=== PATIENT | male | born 1990 | race Caucasian/White ===

== ENCOUNTER 2021-05-28 00:32 | Emergency (ER) | payer OTHER, SELFPAY ==
--- NOTE | 2021-05-28 | ECG_ITS ---
Test Reason : ABD PAIN Blood Pressure : / mmHG Vent. Rate : 094 BPM Atrial Rate : 094 BPM P-R Int : 146 ms QRS Dur : 088 ms QT Int : 334 ms P-R-T Axes : 039 036 046 degrees QTc Int : 417 ms Normal sinus rhythm Normal ECG When compared with ECG of 02-NOV-2018 01:34, No significant change was found Referred By: Generic ED Physician Electronically Signed By:Prem Flores
--- NOTE | ~2021-05-28 | CT_ITS ---
EXAMINATION: CT ABDOMEN AND PELVIS WITH CONTRAST CLINICAL INFORMATION: Epigastric pain. COMPARISON: 07/30/2019 TECHNIQUE: Multidetector volumetric images were obtained from the superior aspect of the liver through the pubic symphysis following administration 85 mL of Omnipaque 350 intravenous contrast. Sagittal and coronal reformatted images were obtained on the technologist's workstation. Oral contrast: No This CT examination was performed using dose optimization techniques as appropriate, variously including the following: *Automated exposure control *Adjustment of mA and/or kV according to patient size (this includes techniques or standardized protocols for targeted exams where dose is matched to indication/reason for exam; i.e. extremities or head) *Use of iterative reconstruction technique DLP: 960 mGy-cm FINDINGS: LUNG BASES: The visualized lung bases are unremarkable. LIVER, GALLBLADDER, AND BILIARY TREE: The liver is normal in size, shape, and attenuation. No focal hepatic lesion or biliary ductal dilatation is present. The gallbladder is unremarkable with no evidence of radiopaque gallstones, gallbladder wall thickening, or obvious pericholecystic inflammatory changes. PANCREAS: Unremarkable. SPLEEN: Unremarkable. ADRENAL GLANDS: Unremarkable. KIDNEYS AND URETERS: The kidneys are normal in size, shape, and attenuation. No hydronephrosis, hydroureter, or calculi seen. No perinephric stranding. BLADDER: Unremarkable. GASTROINTESTINAL TRACT: The small and large bowel are unremarkable. The appendix is unremarkable. ABDOMINAL WALL: No significant hernia is appreciated. LYMPH NODES: Normal. VASCULAR: Unremarkable. PELVIC VISCERA: The prostate and seminal vesicles are unremarkable. OSSEOUS STRUCTURES: Unremarkable. CT/CT abdomen pelvis w con IMPRESSION: No acute findings of the abdomen or pelvis. No inflammatory changes. Fleischner guidelines were followed.
[2021-05-28 00:58] VITALS: BP 147/87; PULSE 92; RESP 18; TEMP 36.6; O2SAT 97; BMI 38.0
[2021-05-28 02:08] LABS: MANUAL DIFF FLAG NO
[2021-05-28 02:10] LABS: Basophils Absolute Auto 0.1 X10*3/uL (0.0-0.2); Basophils Percent Auto 0.9 % (0-2); Eosinophils Absolute Auto 0.6 X10*3/uL (0.0-0.4); Eosinophils Percent Auto 5.7 % (0-4); Hematocrit 49.3 % (42.0-52.0); Hemoglobin 16.1 g/dl (14.0-18.0); Imm Gran Abs Auto 0.07 X10*3/uL (0.00-0.03); Imm Gran Pct Auto 0.7 % (0.0-0.4); Lymphocytes Absolute Auto 3.2 X10*3/uL (1.2-4.9); Mean Corpuscular HGB Conc 32.7 g/dl (31.0-36.0); Mean Corpuscular Volume 85.6 fL (80.0-98.0); Mean Platelet Volume 9.3 fL (9.4-12.4); Monocytes Absolute Auto 1.3 X10*3/uL (0.1-1.2); Monocytes Percent Auto 13.3 % (2-11); Neutrophils Absolute Auto 4.8 x10*3/uL (2.0-8.3); Neutrophils Percent Auto 47.4 % (45-73); Platelet Count 256 X10*3/uL (160-400); Red Blood Count 5.76 X10*6/uL (4.60-5.80); White Blood Count 10.1 X10*3/uL (4.8-10.8)
[2021-05-28 02:26] LABS: Anion Gap 15 (12-20); Blood Urea Nitrogen 20 mg/dL (9-16); Calcium 9.9 mg/dL (8.4-10.2); Carbon Dioxide 26 mmol/L (22-29); Chloride 104 mmol/L (96-108); Creatinine Clr Calc Pharmacy 153.6; Estimated Glomerular Filt Rate > 60; Glucose Random 109 mg/dL (60-115); Potassium 4.6 mmol/L (3.3-5.1); Sodium 140 mmol/L (135-145)
[2021-05-28 02:37] LABS: COVID-19 Test Negative (Negative); IDNOW Serial# 9DD0AD1C
[2021-05-28 04:31] VITALS: BP 141/81; PULSE 102; RESP 18; TEMP 36.9; O2SAT 95
--- NOTE | 2021-05-28 04:54 | ED_ITS ---
HPI - Abdominal Pain General Chief Complaint: Abdominal Pain Stated Complaint: Abd pain/Chest pain Time Seen by Provider: 05/28/21 04:45 History of Present Illness HPI narrative: Patient 30-year-old male presents today for having epigastric pain after drinking some probably drink. Patient has a history of similar pains with soda and spicy food. The pain is burning in nature. It is epigastric. No fever no chills. No alcohol use. No cough and no congestion or upper respiratory symptoms. No change in bowel movement. Patient from home. Related Data Previous Rx's Medication Instructions Recorded pantoprazole 40 mg tablet,delayed 40 mg PO DAILY #14 tab 05/28/21 release (Protonix) Allergies Allergy/AdvReac Type Severity Reaction Status Date / Time No Known Allergies Allergy Unverified 01/26/20 16:13 [No Known Allergies*] seasonal allergies Allergy Unknown Uncoded 12/05/19 00:00 Review of Systems Review of Systems No fever or chills no focal weakness All system reviewed otherwise negative Physical Exam Vital Signs: Vital Signs: Last Vital Signs Temp 98.4 F 05/28/21 04:31 Pulse 102 H 05/28/21 04:31 Resp 18 05/28/21 04:31 BP 141/81 H 05/28/21 04:31 Pulse Ox 95 05/28/21 04:31 BMI result Body Mass Index 38.0 Appearance: Alert. Oriented X3. No acute distress. Eyes: Pupils equal, round and reactive to light. ENT: Pharynx normal. Neck: Normal inspection. Neck supple. No lymph nodes noted. No crepitus CVS: Normal heart rate and rhythm. Pulses normal. Normal S1 and S2 Respiratory: No respiratory distress. Breath sounds normal. No Wheezing. No rales Abdomen: Soft and nontender. No rigidity. No distention. good BS x4 Skin: Skin warm and dry. Normal skin color. Normal skin turgor. Extremities: No lower extremity edema. Neurovascular intact to all extremities. No Lacerations. No Rash Neuro: Oriented X 3. No motor deficit. No sensory deficit. Moving all extermities. No slurred speech MDM - Abdominal Pain MDM Narrative Medical decision making narrative: CT scan of the abdomen grossly negative for any acute evidence of abscess perforation obstruction. Patient's electrolytes unremarkable lipase is normal no evidence of pancreatitis LFTs normal. Will start patient on PPI. Will discharge patient home Medical Records Attestation: I reviewed the patient's medical records. Lab Data Attestation: I reviewed the patient's lab results. Result diagrams: 05/28/21 01:59 05/28/21 01:59 Labs: Lab Results 05/28/21 05/28/21 05/28/21 Range/Units 01:58 01:59 01:59 WBC 10.1 (4.8-10.8) X10*3/uL RBC 5.76 (4.60-5.80) X10*6/uL Hgb 16.1 (14.0-18.0) g/dl Hct 49.3 (42.0-52.0) % MCV 85.6 (80.0-98.0) fL MCH 28.0 (27.0-33.0) pg MCHC 32.7 (31.0-36.0) g/dl RDW 13.0 (11.0-16.0) % Plt Count 256 (160-400) X10*3/uL MPV 9.3 L (9.4-12.4) fL Immature Gran % (Auto) 0.7 H (0.0-0.4) % Neut % (Auto) 47.4 (45-73) % Lymph % (Auto) 32.0 (20-40) % Pershing % (Auto) 13.3 H (2-11) % Eos % (Auto) 5.7 H (0-4) % Baso % (Auto) 0.9 (0-2) % Lymph # (Auto) 3.2 (1.2-4.9) X10*3/uL Pershing # (Auto) 1.3 H (0.1-1.2) X10*3/uL Eos # (Auto) 0.6 H (0.0-0.4) X10*3/uL Baso # (Auto) 0.1 (0.0-0.2) X10*3/uL Abs Immat Gran (auto) 0.07 H (0.00-0.03) X10*3/uL Absolute Neuts (auto) 4.8 (2.0-8.3) x10*3/uL Absolute Nucleated RBC 0.000 (0.0-0.012) X10*3/uL Nucleated RBC % (auto) 0.0 (0.0-0.2) /100WBC Sodium 140 (135-145) mmol/L Potassium 4.6 (3.3-5.1) mmol/L Chloride 104 (96-108) mmol/L Carbon Dioxide 26 (22-29) mmol/L Anion Gap 15 (12-20) BUN 20 H (9-16) mg/dL Creatinine 0.93 (0.5-1.4) mg/dL Estim Creat Clear Calc 153.6 Estimated GFR > 60 Random Glucose 109 (60-115) mg/dL Calcium 9.9 (8.4-10.2) mg/dL Total Bilirubin 0.6 (0.0-1.0) mg/dL Direct Bilirubin 0.3 (0.0-0.5) mg/dL AST 26 (5-37) U/L ALT 28 (0-40) U/L Alkaline Phosphatase 62 (39-117) U/L Troponin I High Sens (<3.5-35.0) ng/L Total Protein 7.8 (6.5-8.0) g/dL Albumin 4.5 (3.5-5.0) g/dL Lipase 42 (8-78) U/L COVID-19 ([facility]) Negative (Negative) COVID-19 Clin Com See Note 05/28/21 Range/Units 05:06 WBC (4.8-10.8) X10*3/uL RBC (4.60-5.80) X10*6/uL Hgb (14.0-18.0) g/dl Hct (42.0-52.0) % MCV (80.0-98.0) fL MCH (27.0-33.0) pg MCHC (31.0-36.0) g/dl RDW (11.0-16.0) % Plt Count (160-400) X10*3/uL MPV (9.4-12.4) fL Immature Gran % (Auto) (0.0-0.4) % Neut % (Auto) (45-73) % Lymph % (Auto) (20-40) % Pershing % (Auto) (2-11) % Eos % (Auto) (0-4) % Baso % (Auto) (0-2) % Lymph # (Auto) (1.2-4.9) X10*3/uL Pershing # (Auto) (0.1-1.2) X10*3/uL Eos # (Auto) (0.0-0.4) X10*3/uL Baso # (Auto) (0.0-0.2) X10*3/uL Abs Immat Gran (auto) (0.00-0.03) X10*3/uL Absolute Neuts (auto) (2.0-8.3) x10*3/uL Absolute Nucleated RBC (0.0-0.012) X10*3/uL Nucleated RBC % (auto) (0.0-0.2) /100WBC Sodium (135-145) mmol/L Potassium (3.3-5.1) mmol/L Chloride (96-108) mmol/L Carbon Dioxide (22-29) mmol/L Anion Gap (12-20) BUN (9-16) mg/dL Creatinine (0.5-1.4) mg/dL Estim Creat Clear Calc Estimated GFR Random Glucose (60-115) mg/dL Calcium (8.4-10.2) mg/dL Total Bilirubin (0.0-1.0) mg/dL Direct Bilirubin (0.0-0.5) mg/dL AST (5-37) U/L ALT (0-40) U/L Alkaline Phosphatase (39-117) U/L Troponin I High Sens < 3.5 (<3.5-35.0) ng/L Total Protein (6.5-8.0) g/dL Albumin (3.5-5.0) g/dL Lipase (8-78) U/L COVID-19 ([facility]) (Negative) COVID-19 Clin Com Discharge Plan Discharge Clinical Impression: Gastritis Patient Disposition: Home, Self-Care Instructions: Gastritis (ED) Additional Instructions: Small meals. No fatty food. Please take your Protonix on a daily basis. Prescriptions: New pantoprazole [Protonix] 40 mg tablet,delayed release (DR/EC) 40 mg PO DAILY Qty: 14 RF: 0 Referrals: Jatin Peck MD [Primary Care Provider] - 2 days [facility] Past Medical History Attestation statement: The following information was validated with the patient. Social History Social History Advance Directives: No
[2021-05-28 05:00] LABS: Alanine Aminotransferase 28 U/L (0-40); Albumin Level 4.5 g/dL (3.5-5.0); Alkaline Phosphatase 62 U/L (39-117); Aspartate Amino Transferase 26 U/L (5-37); Bilirubin Direct 0.3 mg/dL (0.0-0.5); Bilirubin Total 0.6 mg/dL (0.0-1.0); Lipase 42 U/L (8-78); Total Protein 7.8 g/dL (6.5-8.0)
[2021-05-28] MEDS: Magnesium Hydrox/Alum Hydrox 30 ML ORAL.SUSP PO (05:11)
[2021-05-28 05:30] LABS: Troponin-I High Sensitivity < 3.5 ng/L (<3.5-35.0)
[2021-05-28] MEDS: iohexoL 350 MG/ML 100 ML INFUS..BTL 85 ML IV (05:34)
[2021-05-28] MEDS: Acetaminophen 325 MG TABLET 650 MG PO (06:17)
== END 2021-05-28 06:26 | disposition home or self-care (01) ==
PROVIDERS: Emergency Provider Emergency Medicine Emergency Medical Services; PCP Internal Medicine
DX: K29.70 Gastritis, unspecified, without bleeding (principal); Z20.822 Contact with and (suspected) exposure to COVID-19; R10.13 Epigastric pain
CPT/HCPCS: 36415; 74177; 80048; 80076; 83690; 84484; 85025; 87635; 93005; 99284; Q9967

== ENCOUNTER 2021-07-04 17:16 | Emergency (ER) | payer OTHER, SELFPAY ==
--- NOTE | ~2021-07-04 | XR_ITS ---
EXAMINATION: XR CHEST CLINICAL INFORMATION: Chest pain COMPARISON: Chest x-ray 03/28/2011 TECHNIQUE: Frontal view of the chest was obtained. 5:56 PM FINDINGS: No significant abnormality is noted involving the heart, lungs, mediastinum, bony thorax or soft tissues. XR/XR chest 1V IMPRESSION: Unremarkable examination.
--- NOTE | 2021-07-04 17:20 | ECG_ITS ---
Test Reason : CHEST PAIN Blood Pressure : / mmHG Vent. Rate : 067 BPM Atrial Rate : 067 BPM P-R Int : 156 ms QRS Dur : 098 ms QT Int : 390 ms P-R-T Axes : 036 036 024 degrees QTc Int : 412 ms Normal sinus rhythm Normal ECG When compared with ECG of 28-MAY-2021 01:50, No significant change was found Referred By: Generic ED Physician Electronically Signed By:MONET MUÑOZ
[2021-07-04 17:24] VITALS: BP 154/82; PULSE 82; RESP 16; TEMP 36.7; O2SAT 98; BMI 32.8
[2021-07-04 17:41] LABS: MANUAL DIFF FLAG NO
[2021-07-04 17:49] LABS: Basophils Absolute Auto 0.1 X10*3/uL (0.0-0.2); Basophils Percent Auto 0.7 % (0-2); Eosinophils Absolute Auto 0.3 X10*3/uL (0.0-0.4); Hematocrit 45.8 % (42.0-52.0); Imm Gran Abs Auto 0.01 X10*3/uL (0.00-0.03); Imm Gran Pct Auto 0.1 % (0.0-0.4); Lymphocytes Absolute Auto 2.8 X10*3/uL (1.2-4.9); Lymphocytes Percent Auto 40.2 % (20-40); Mean Corpuscular HGB Conc 32.8 g/dl (31.0-36.0); Mean Corpuscular Hemoglobin 27.7 pg (27.0-33.0); Mean Corpuscular Volume 84.7 fL (80.0-98.0); Mean Platelet Volume 10.5 fL (9.4-12.4); Monocytes Absolute Auto 0.9 X10*3/uL (0.1-1.2); Monocytes Percent Auto 12.8 % (2-11); Neutrophils Absolute Auto 2.9 x10*3/uL (2.0-8.3); Neutrophils Percent Auto 42.2 % (45-73); Platelet Count 212 X10*3/uL (160-400); Red Blood Count 5.41 X10*6/uL (4.60-5.80); Red Cell Distribution Width 13.1 % (11.0-16.0); White Blood Count 6.9 X10*3/uL (4.8-10.8)
[2021-07-04 18:01] LABS: Anion Gap 15 (12-20); Blood Urea Nitrogen 18 mg/dL (9-16); Calcium 9.7 mg/dL (8.4-10.2); Carbon Dioxide 25 mmol/L (22-29); Chloride 104 mmol/L (96-108); Creatinine Clr Calc Pharmacy 149.4; Estimated Glomerular Filt Rate > 60; Glucose Random 82 mg/dL (60-115); Sodium 140 mmol/L (135-145)
[2021-07-04 18:07] LABS: Troponin-I High Sensitivity < 3.5 ng/L (<3.5-35.0)
[2021-07-04 22:50] LABS: Alanine Aminotransferase 30 U/L (0-40); Albumin Level 4.5 g/dL (3.5-5.0); Alkaline Phosphatase 53 U/L (39-117); Aspartate Amino Transferase 29 U/L (5-37); Bilirubin Direct 0.5 mg/dL (0.0-0.5); Bilirubin Total 2.8 mg/dL (0.0-1.0); Lipase 55 U/L (8-78); Total Protein 7.3 g/dL (6.5-8.0)
[2021-07-04 23:24] VITALS: BP 126/70; PULSE 71; RESP 16; TEMP 36.4; O2SAT 98
[2021-07-04] MEDS: Famotidine 20 MG TABLET PO (23:26)
[2021-07-04] MEDS: Lidocaine HCl Viscous 2 % 15 ML SOLUTION MUCOUS MEM (23:26)
[2021-07-04] MEDS: Magnesium Hydrox/Alum Hydrox 30 ML ORAL.SUSP PO (23:26)
[2021-07-04] MEDS: PHENobarb/Hyoscy/Atropine/Scop 10 ML ELIXIR PO (23:26)
--- NOTE | 2021-07-04 23:41 | ED_ITS ---
HPI - Abdominal Pain General Chief Complaint: Abdominal Pain Stated Complaint: Chest pain/abd pain Time Seen by Provider: 07/04/21 22:30 Source: patient Mode of arrival: ambulatory Limitations: no limitations History of Present Illness HPI narrative: 31-year-old male presents to ED for chronic abdominal pain since he was seen here last visit May 28 2021. Patient states having acid burning sensation. He states on omeprazole no improvement. Patient states acid belly pain going up to chest pain. Patient has follow-up with blue split trimmer ball away August 05. Patient wants early consultation or to be seen by Gastroenterology earlier. Patient denies any blood in stool or vomiting blood. Patient denies any nausea or vomiting MD elicited complaint: abdominal pain Related Data Previous Rx's Medication Instructions Recorded pantoprazole 40 mg tablet,delayed 40 mg PO DAILY #14 tab 05/28/21 release (Protonix) famotidine 20 mg tablet (Pepcid) 20 mg PO BID 10 Days #20 tab 07/04/21 Allergies Allergy/AdvReac Type Severity Reaction Status Date / Time No Known Allergies Allergy Unverified 07/04/21 17:24 [No Known Allergies*] seasonal allergies Allergy Unknown Itchy Eyes Uncoded 07/04/21 17:24 Review of Systems Review of Systems Abdominal pain as a burning sensation Yes all other systems are reviewed and are negative PMFSH Past Medical History Medical History (Updated 07/04/21 @ 23:49 by AYLEEN Hogue) Gastritis No known health problems Social History Social History Advance Directives: No Advance Directives Information Provided: No Physical Exam ED Vital Signs: Vital Signs - 24 hr 07/04/21 17:24 07/04/21 23:24 Temperature 98.1 F 97.5 F Pulse Rate 82 71 Respiratory Rate 16 16 Blood Pressure 154/82 H 126/70 Pulse Oximetry 98 98 BMI result Body Mass Index 32.8 Const General: cooperative, healthy appearing, comfortable, no acute distress, well developed, awake and Physically active Orientation/consciousness: patient oriented x3 HENMT Head: Yes normal to inspection, Yes No palpable skull fracture present, Yes normocephalic, Yes atraumatic and No abrasion Eyes General: appearance normal, both eyes and all related structures Neck Neck: Yes normal visual inspection, Yes full ROM, Yes no lymphadenopathy, Yes no meningeal signs, Yes trachea midline, Yes supple, No anterior neck swelling and No tender Chest Chest palpation & inspection: normal inspection of the chest and normal palpation of entire chest wall Resp Effort & Inspection: normal respiratory effort and able to speak in complete sentences Auscultation: clear to auscultation bilaterally Cardio Jugular venous distension: no JVD Heart sounds: S1 normal heart sound present and S2 normal heart sound present GI Inspection: Yes normal to inspection and No abdominal wall ecchymosis Palpation (GI): Soft to palpation, not firm, nontender, no guarding and not rigid General: No CVA tenderness and Yes no CVA tenderness Back/Spine/Pelvis Back: no CVA tenderness, No CVA tenderness and No back tenderness Skin General skin exam: no rashes or lesions noted and elasticity normal Neuro General: patient oriented x3, gait normal, no meningeal signs and CN's II-XI intact bilaterally Cranial nerves: Yes CN's II-XII intact bilaterally Extrem General: Yes normal to inspection and Yes full ROM Psych Appearance: grossly normal, well kempt and not disheveled Course Course Course Narrative: Labs and EKG ordered. Reevaluation(s) Reevaluation #1: EKG normal negative STEMI. Labs include troponin and chest x-ray normal. LFTs and lipase normal. Patient given GI cocktail. Patient informed to call Gastroenterology to have earlier appointment. Patient educated he may need an endoscope P and colonoscopy. Patient Education gastritis. Patient educated on H pylori. Patient had normal CT scan in May and states he had a recent normal abdominal ultrasound 2 weeks ago. States having same symptoms since May. Time: 23:45 MDM - Abdominal Pain MDM Narrative Medical decision making narrative: GERD abdominal pain Lab Data Result diagrams: 07/04/21 17:37 07/04/21 17:37 Labs: Lab Results 07/04/21 07/04/21 07/04/21 Range/Units 17:37 17:37 17:37 WBC 6.9 (4.8-10.8) X10*3/uL RBC 5.41 (4.60-5.80) X10*6/uL Hgb 15.0 (14.0-18.0) g/dl Hct 45.8 (42.0-52.0) % MCV 84.7 (80.0-98.0) fL MCH 27.7 (27.0-33.0) pg MCHC 32.8 (31.0-36.0) g/dl RDW 13.1 (11.0-16.0) % Plt Count 212 (160-400) X10*3/uL MPV 10.5 (9.4-12.4) fL Immature Gran % (Auto) 0.1 (0.0-0.4) % Neut % (Auto) 42.2 L (45-73) % Lymph % (Auto) 40.2 H (20-40) % Dodge % (Auto) 12.8 H (2-11) % Eos % (Auto) 4.0 (0-4) % Baso % (Auto) 0.7 (0-2) % Lymph # (Auto) 2.8 (1.2-4.9) X10*3/uL Dodge # (Auto) 0.9 (0.1-1.2) X10*3/uL Eos # (Auto) 0.3 (0.0-0.4) X10*3/uL Baso # (Auto) 0.1 (0.0-0.2) X10*3/uL Abs Immat Gran (auto) 0.01 (0.00-0.03) X10*3/uL Absolute Neuts (auto) 2.9 (2.0-8.3) x10*3/uL Absolute Nucleated RBC 0.000 (0.0-0.012) X10*3/uL Nucleated RBC % (auto) 0.0 (0.0-0.2) /100WBC Sodium 140 (135-145) mmol/L Potassium 4.0 (3.3-5.1) mmol/L Chloride 104 (96-108) mmol/L Carbon Dioxide 25 (22-29) mmol/L Anion Gap 15 (12-20) BUN 18 H (9-16) mg/dL Creatinine 0.88 (0.5-1.4) mg/dL Estim Creat Clear Calc 149.4 Estimated GFR > 60 Random Glucose 82 (60-115) mg/dL Calcium 9.7 (8.4-10.2) mg/dL Total Bilirubin 2.8 H (0.0-1.0) mg/dL Direct Bilirubin 0.5 (0.0-0.5) mg/dL AST 29 (5-37) U/L ALT 30 (0-40) U/L Alkaline Phosphatase 53 (39-117) U/L Troponin I High Sens < 3.5 (<3.5-35.0) ng/L Total Protein 7.3 (6.5-8.0) g/dL Albumin 4.5 (3.5-5.0) g/dL Lipase 55 (8-78) U/L ECG Data Interpretation: Normal sinus rhythm. Ventricular rate 67. Parents were 156. QRS 98. QTC 412. Negative STEMI Discharge Plan Discharge Clinical Impression: Gastroesophageal reflux disease, Abdominal pain Patient Disposition: Home, Self-Care Instructions: Gastroesophageal Reflux Disease (DC), Abdominal Pain (ED) Additional Instructions: Return to ED for blood in stool, severe abdominal pain, vomiting blood, in ability to tolerate solid food/liquid, weakness, dizziness, chest pain, shortness of breath, or any other concerning symptoms. Your labs came back normal including liver and lipase. EKG, chest x-ray and troponin came back normal. Prescriptions: New famotidine [Pepcid] 20 mg tablet 20 mg PO BID 10 Days Qty: 20 0RF No Action pantoprazole [Protonix] 40 mg tablet,delayed release (DR/EC) 40 mg PO DAILY Qty: 14 0RF Referrals: Lucho Rehman MD [Physician] - 2 days (Chronic GERD like symptoms. May need endoscopy/colonoscopy) Stand Alone Forms: Work/School Release Interventions: ED Discharge Assessment Last Done: 07/05/21 00:39 Discharge Date/Time: 07/05/21 00:41 Print Language: Malay
[2021-07-05] MEDS: Acetaminophen 325 MG TABLET 650 MG PO (00:34)
== END 2021-07-05 00:41 | disposition home or self-care (01) ==
PROVIDERS: Physician Assistant; Emergency Provider Internal Medicine; PCP Internal Medicine
DX: K21.9 Gastro-esophageal reflux disease without esophagitis (principal); R10.9 Unspecified abdominal pain
CPT/HCPCS: 36415; 71045; 80048; 80076; 83690; 84484; 85025; 93005; 99283; 99284

== ENCOUNTER 2021-07-10 14:46 | Outpatient (REF) | payer OTHER, SELFPAY ==
[2021-07-10 17:19] LABS: TSH reflex Free T4 1.83 uIU/mL (0.32-4.0)
[2021-07-10 17:27] LABS: Folate 15.6 ng/mL (> or = 4.0); Vitamin B12 > 2000 pg/mL (200-900)
[2021-07-14 15:32] LABS: Vitamin D 25-OH, D2 <4 ng/mL; Vitamin D 25-OH, D3 33 ng/mL; Vitamin D 25-OH, Total 33 ng/mL (30-100)
[2021-07-15 21:42] LABS: Transglutaminase Ab IgG <1.0 U/mL; Transglutaminase IgA <1.0 U/mL
== END 2021-07-10 14:47 | disposition home or self-care (01) ==
LOC: HO.LAB 14:46
PROVIDERS: PCP Internal Medicine; Visit Provider Nurse Practitioner Family
DX: R10.11 Right upper quadrant pain (principal); K58.1 Irritable bowel syndrome with constipation; K58.0 Irritable bowel syndrome with diarrhea; K21.9 Gastro-esophageal reflux disease without esophagitis; K59.01 Slow transit constipation; R10.13 Epigastric pain; E55.9 Vitamin D deficiency, unspecified; R14.0 Abdominal distension (gaseous)
CPT/HCPCS: 36415; 82306; 82607; 82746; 84443; 86364; 99202

== ENCOUNTER 2021-07-13 08:07 | Outpatient (REF) | payer OTHER, SELFPAY | END 2021-07-13 08:08 | disposition home or self-care (01) | LOC: HO.LNP 08:07 | PROVIDERS: Visit Provider Nurse Practitioner Family | DX: K21.9 Gastro-esophageal reflux disease without esophagitis (principal) | CPT/HCPCS: 87338 ==

== ENCOUNTER 2021-08-16 06:18 | Day surgery (SDC) | payer OTHER, SELFPAY ==
[2021-08-13 10:25] VITALS: BMI 31.8
--- NOTE | 2021-08-15 09:19 | P.CONAN_ITS ---
Documented by User: Kisha Tong NP 08/15/21 09:21 HPI - Anesthesia Eval Consult details Narrative: 31yo M for Upper Endoscopy [facility] Active Problems Active Problems: All Active Problems (Updated 07/15/21 @ 08:53 by Abbey Bello, [facility]) GERD (gastroesophageal reflux disease) (Acute) Past Medical History Medical History Gastritis GERD (gastroesophageal reflux disease) No known health problems Family History Family History Mother Diabetes Other Breast cancer Surgical History Surgical History Hx of myringotomy Social History Social History Alcohol intake: never Patient Tobacco Use Status: Never used Tobacco Use of substances other than those prescribed or required for medical reasons: No Are you DNR?: No Advance Directives: No Advance Directives Information Provided: Yes Meds Allergies Allergy/AdvReac Type Severity Reaction Status Date / Time No Known Allergies Allergy Unverified 07/10/21 14:53 [No Known Allergies*] seasonal allergies Allergy Unknown Itchy Eyes Uncoded 07/10/21 14:53 Home Medications Medication Instructions Recorded Confirmed Last Taken Type Vitamin D3 08/16/21 Unknown History multivitamin 08/16/21 08/16/21 Unknown History vitamin B complex 08/16/21 Unknown History vitamin N90-dehbinzew factor 08/16/21 Unknown History Exam Exam Date and Time: August 15, 2021 0919 Height,Weight and Vital Signs: Height 5 ft 10 in Weight 100.698 kg Pertinent Lab Results Pertinent Lab Results: Laboratory Tests 07/04/21 07/04/21 17:37 17:37 WBC 6.9 Hgb 15.0 Hct 45.8 Plt Count 212 Sodium 140 Potassium 4.0 Chloride 104 Carbon Dioxide 25 BUN 18 H Creatinine 0.88 Narrative Narrative: EKG 06/2021 Vent. Rate : 067 BPM ? ? Atrial Rate : 067 BPM ?? P-R Int : 156 ms? QRS Dur : 098 ms ? ? QT Int : 390 ms ? ? ? P-R-T Axes : 036 036 024 degrees ?? QTc Int : 412 ms ? Normal sinus rhythm Normal ECG When compared with ECG of 28-MAY-2021 01:50, No significant change was found Assessment and Plan Assessment Anesthesia Assessment: Chart Reviewed Documented by User: Oliva Daly MD 08/16/21 07:39 PMFSH Past Medical History Medical History Gastritis GERD (gastroesophageal reflux disease) No known health problems Family History Family History Mother Diabetes Other Breast cancer Surgical History Surgical History Hx of myringotomy History of Problems with Anesthesia: No Social History Social History Alcohol intake: never Patient Tobacco Use Status: Never used Tobacco Use of substances other than those prescribed or required for medical reasons: No Are you DNR?: No Advance Directives: No Advance Directives Information Provided: Yes Meds Allergies Allergy/AdvReac Type Severity Reaction Status Date / Time No Known Allergies Allergy Unverified 07/10/21 14:53 [No Known Allergies*] seasonal allergies Allergy Unknown Itchy Eyes Uncoded 07/10/21 14:53 Home Medications Medication Instructions Recorded Confirmed Last Taken Type Vitamin D3 08/16/21 Unknown History multivitamin 08/16/21 08/16/21 Unknown History vitamin B complex 08/16/21 Unknown History vitamin W40-vypbwklcu factor 08/16/21 Unknown History Exam Airway Mallampati Class: II TM Dist: >3cm Neck ROM: Full Loose/Missing/Broken Teeth: No Heart: RRR Lungs: CTA Assessment and Plan Final Anesthetic Review History of Problems with Anesthesia: No NPO: Yes ASA Class: II Final Preanesthetic Review: Meds/Allgs Chart Reviewed, Consent Obtained/Reviewed and Anes Risks/Benef Reviewed Patient Risk: Low Procedure Risk: Intermediate Anesthetic Plan Anesthetic Plan: MAC: Disposition: Standard PACU
[2021-08-16 06:33] VITALS: BMI 30.4
[2021-08-16 06:45] VITALS: BP 134/78; PULSE 72; RESP 16; TEMP 37.2; O2SAT 98
[2021-08-16] MEDS: Lactated Ringers 1,000 ML 100 ML IVCONT (06:56)
--- NOTE | 2021-08-16 07:22 | MHC.SHP ---
Pre-Procedural Eval Section A Date of Service: 08/16/21 The patient is an INPATIENT: No The History & Physical has been completed within 30 days and I have reviewed it.: No Section B Chief Complaint: postprandial abdominal, epigastric pain, cramping, Details of Present Illness: postprandial abdominal, epigastric pain, cramping, bloating, acid reflux. Relevant Family History (Specify if Yes): No Relevant Social History: None Present Medications: see Short Stay Collaborative assessment Medical History: Significant History (GERD, gastritis) History of Previous Operations: No relevant previous surgery Allergies: Allergies Allergy/AdvReac Type Severity Reaction Status Date / Time No Known Allergies Allergy Unverified 07/10/21 14:53 [No Known Allergies*] seasonal allergies Allergy Unknown Itchy Eyes Uncoded 07/10/21 14:53 Review of Systems Sugical H&P ROS: Negative: Constitution, Cardiovascular and Respiratory and Yes, Specify: Gastrointestinal (abdominal pain, constipation) Exam Surgical H&P Exam: Normal: Heart, Normal: Lungs, Normal: Extremities and Normal: Abdomen Plan Diagnosis/Plan: Unchanged I have reviewed the history and physical and performed a pertinent physical examination on my patient. No changes have occurred unless specified.
--- NOTE | 2021-08-16 07:24 | P.OP_ITS ---
Operative Note Operative Note Date of Service: 08/16/21 Narrative: Pre-op diagnosis: postprandial abdominal, epigastric pain, cramping, bloating, acid reflux. Post-op diagnosis:?other (Gastritis, gastric erosions) Procedure: FLEXIBLE TRANSORAL UPPER GASTROINTESTINAL ENDOSCOPY WITH BIOPSIES Consent:?Indications for the procedure and potential complications of bleeding, perforation, reaction to medications and missed diagnosis were discussed with the patient and informed consent was obtained. Instrument:?Olympus GIF H 190 mid size upper endoscope Monitoring: Vital signs and clinical assessment, continuous EKG monitoring, Pulse oximetry, Carbon Dioxide monitoring and blood pressure monitoring were done throughout the procedure. Procedure:?The patient was placed in the left lateral decubitis position and pre-procedure medications were administered and a bite block was placed. The endoscope was inserted into the mouth and advanced under direct vision to the third part of duodenum. A careful inspection was made as the upper endoscope was withdrawn including a retroflexed examination of the proximal stomach; Findings and interventions are described below. Findings: Larynx:? Normal Esophagus: GE junction at 40 cms. No esophagitis or Robles's. Stomach: Mild gastric erythema with three 4-5 mm antral erosions/healing ulcer. Biopsies were obtained. Grade 2 flap valve on retroflexed examination of the cardia. Duodenum: Normal bulb and descending duodenum. Biopsies were obtained from 3rd part of the duodenum to check for celiac sprue Intervention: Biopsies as noted above Impression and Post Procedure Diagnosis: Endoscopy Findings: STOMACH: Mild gastric erythema with three 4-5 mm antral erosions/healing ulcer. Biopsies were obtained. DUODENUM: Normal - biopsied to check for celiac sprue Abdominal pain likely related to healing gastric ulcer versus chronic constipation Plan: Await pathology results Patient has an appointment on 09/06/21 in the GI Clinic with Abbey Bello FNP- [facility] . Above findings were reviewed with the patient and PUD handout was given in the discharge area Pt advised to continue PPI and Famotidine and start taking Senna at bedtime for constipation (refills sent on all three medications). Surgeon: Lucho Rehman MD Anesthesia:?KHADIJAH (Gretchen Shaikh CRNA) Was an Research Animal Facility Supervisor used for this Procedure?:?No Research Animal Facility Supervisor:?Aranza Erickson Estimated blood loss (mL):?0 Pathology:?other (a. small bowel bx's r/o sprue? b. gastric antrum bx's r/o h. pylori? c. gastric erosion) Condition:?stable Disposition:?PACU
[2021-08-16 08:37] VITALS: BP 109/55; PULSE 59; RESP 16; TEMP 36.6; O2SAT 98
[2021-08-16 08:52] VITALS: BP 100/49; PULSE 49; RESP 16; O2SAT 98
[2021-08-16 09:07] VITALS: BP 108/69; PULSE 55; RESP 16; O2SAT 98
[2021-08-16 09:22] VITALS: BP 110/73; PULSE 59; RESP 18; TEMP 36.6; O2SAT 98
== END 2021-08-16 09:41 | disposition home or self-care (01) ==
PROVIDERS: PCP Internal Medicine; Visit Provider Internal Medicine Gastroenterology
PROC: 0DJ08ZZ Inspection of Upper Intestinal Tract, Via Natural or Artificial Opening Endoscopic (ICD-10-PCS; CPT 43235; principal; 2021-08-16 08:00)
DX: K29.70 Gastritis, unspecified, without bleeding (principal); K25.9 Gastric ulcer, unspecified as acute or chronic, without hemorrhage or perforation; K21.9 Gastro-esophageal reflux disease without esophagitis; Z79.899 Other long term (current) drug therapy
CPT/HCPCS: 43239; 88305; 88342; J2250

== ENCOUNTER 2021-09-06 11:18 | Outpatient (REF) | payer OTHER, SELFPAY | END 2021-09-06 11:19 | disposition home or self-care (01) | LOC: HO.LAB 11:18 | PROVIDERS: PCP Internal Medicine; Visit Provider Nurse Practitioner Family | DX: K21.9 Gastro-esophageal reflux disease without esophagitis (principal); R14.0 Abdominal distension (gaseous) | CPT/HCPCS: 99212 ==

== ENCOUNTER 2021-09-12 15:30 | Outpatient (REF) | payer OTHER, SELFPAY ==
--- NOTE | ~2021-09-12 | XR_ITS ---
EXAMINATION: XR LUMBOSACRAL SPINE CLINICAL INFORMATION: Low back pain COMPARISON: Previous x-ray November 2018 TECHNIQUE: Three views of the lumbosacral spine. FINDINGS: The vertebral bodies and posterior elements are normal. The disc spaces are preserved and the vertebral alignment is normal. The paraspinal soft tissues are normal. XR/XR lumbar spine 2-3V IMPRESSION: Unremarkable examination.
== END 2021-09-12 15:31 | disposition home or self-care (01) ==
LOC: HO.XRAY 15:30
PROVIDERS: PCP Internal Medicine; Visit Provider Internal Medicine
DX: M54.41 Lumbago with sciatica, right side (principal)
CPT/HCPCS: 72100

== ENCOUNTER 2021-09-21 10:18 | Outpatient (REF) | payer OTHER, SELFPAY ==
[2021-09-29 19:11] LABS: Pancreatic Elastase-1 >500 mcg/g
== END 2021-09-21 10:19 | disposition home or self-care (01) ==
LOC: HO.LNP 10:18
PROVIDERS: Visit Provider Nurse Practitioner Family
DX: R10.9 Unspecified abdominal pain (principal)
CPT/HCPCS: 82656

== ENCOUNTER 2021-09-24 16:18 | Outpatient (REF) | payer OTHER, SELFPAY ==
--- NOTE | ~2021-09-24 | MR_ITS ---
EXAMINATION: MR LUMBAR SPINE WITHOUT CONTRAST CLINICAL INFORMATION: Lumbago with sciatica right side. COMPARISON: None TECHNIQUE: MRI of the lumbar spine was obtained using routine sequences without contrast. The examination is mild to moderately motion degraded. FINDINGS: The lumbar vertebral bodies maintain normal heights and alignment. The disc heights are preserved. No bone marrow edema is seen. Distal spinal cord appears normal. The conus medullaris terminates normally at the T12-L1 level. The visualized paraspinal muscles and intra-abdominal and pelvic contents are within normal limits. SPINAL LEVELS: L1-L2: No posterior disc abnormality. No spinal canal or neural foraminal stenosis. L2-L3: No posterior disc abnormality. No spinal canal or neural foraminal stenosis. L3-L4: No posterior disc abnormality. No spinal canal or neural foraminal stenosis. L4-L5: No posterior disc abnormality. Mild facet arthropathy. No spinal canal or neural foraminal stenosis. L5-S1: No posterior disc abnormality. Mild facet arthropathy. No spinal canal or neural foraminal stenosis. MR/MR lumbar spine wo con IMPRESSION: Mild to moderately motion degraded exam. No spinal canal stenosis or definite nerve root compression within the limits of the exam. Mild facet arthropathy at L4-L5 and L5-S1.
== END 2021-09-24 16:19 | disposition home or self-care (01) ==
LOC: HO.MRI 16:18
PROVIDERS: Visit Provider Internal Medicine
DX: M54.41 Lumbago with sciatica, right side (principal)
CPT/HCPCS: 72148

== ENCOUNTER → 2021-11-13 08:43 | Outpatient (BNVA) | payer OTHER, MEDICAID, SELFPAY | PROVIDERS: PCP Internal Medicine; Visit Provider Nurse Practitioner Family | DX: K21.9 Gastro-esophageal reflux disease without esophagitis (principal); R14.0 Abdominal distension (gaseous); Z79.899 Other long term (current) drug therapy | CPT/HCPCS: 99212 ==

== ENCOUNTER → 2022-04-25 15:15 | Outpatient (BNVA) | payer MEDICAID, SELFPAY | PROVIDERS: PCP Internal Medicine; Visit Provider Nurse Practitioner Family | DX: K21.9 Gastro-esophageal reflux disease without esophagitis (principal); R14.0 Abdominal distension (gaseous) | CPT/HCPCS: 99212 ==

== ENCOUNTER 2022-05-16 11:23 | Day surgery (SDC) | payer MEDICAID, SELFPAY ==
--- NOTE | 2022-05-15 13:53 | HO.ANESPROP2 ---
Documented by User: Kisha Tong NP 05/15/22 13:55 HPI - Anesthesia Eval Consult details Narrative: 31yo M for Upper Endoscopy s/p same 08/2021 with MAC PMFSH Active Problems Active Problems: All Active Problems (Updated 07/15/21 @ 08:53 by Abbey Bello [facility]) GERD (gastroesophageal reflux disease) (Acute) Past Medical History Medical History Gastritis GERD (gastroesophageal reflux disease) No known health problems Family History Family History Mother Diabetes Other Breast cancer Surgical History Surgical History History of esophagogastroduodenoscopy (EGD) Hx of myringotomy History of Problems with Anesthesia: No Social History Social History Alcohol intake: never Patient Tobacco Use Status: Never used Tobacco Use of substances other than those prescribed or required for medical reasons: No Are you DNR?: No Advance Directives: No Advance Directives Information Provided: Yes Meds Allergies Allergy/AdvReac Type Severity Reaction Status Date / Time seasonal allergies Allergy Unknown Itchy Eyes Uncoded 07/10/21 14:53 Exam Exam Date and Time: May 15, 2022 1353 Narrative Narrative: EKG 06/2021 Vent. Rate : 067 BPM ? ? Atrial Rate : 067 BPM ?? P-R Int : 156 ms? QRS Dur : 098 ms ? ? QT Int : 390 ms ? ? ? P-R-T Axes : 036 036 024 degrees ?? QTc Int : 412 ms ? Normal sinus rhythm Normal ECG When compared with ECG of 28-MAY-2021 01:50, No significant change was found Assessment and Plan Assessment Anesthesia Assessment: Chart Reviewed Final Anesthetic Review History of Problems with Anesthesia: No Documented by User: Tiffanie Gonzalez MD 05/16/22 12:20 [facility] Past Medical History Medical History Gastritis GERD (gastroesophageal reflux disease) No known health problems Family History Family History Mother Diabetes Other Breast cancer Family history of problems with anesthesia: No Surgical History Surgical History History of esophagogastroduodenoscopy (EGD) Hx of myringotomy Social History Social History Alcohol intake: never Patient Tobacco Use Status: Never used Tobacco Use of substances other than those prescribed or required for medical reasons: No Are you DNR?: No Advance Directives: No Advance Directives Information Provided: Yes Meds Allergies Allergy/AdvReac Type Severity Reaction Status Date / Time seasonal allergies Allergy Unknown Itchy Eyes Uncoded 07/10/21 14:53 Exam Airway Mallampati Class: II TM Dist: >3cm Neck ROM: Full Heart: rrr Lungs: cta Assessment and Plan Assessment Anesthesia Assessment: Anesthesia Plan Discussed and Chart Reviewed Final Anesthetic Review Family History of Problems with Anesthesia: No NPO: Yes ASA Class: II Final Preanesthetic Review: No Changes in Pt Med Stat, Meds/Allgs Chart Reviewed and Consent Obtained/Reviewed Patient Risk: Intermediate Procedure Risk: Intermediate Anesthetic Plan Anesthetic Plan: MAC: Disposition: Standard PACU
[2022-05-16 12:01] VITALS: BMI 34.1
--- NOTE | 2022-05-16 12:07 | P.BOP_ITS ---
Brief Operative Note Date of Service: 05/16/22 Pre-op diagnosis: GERD, EPIGASTRIC PAIN, INTERMITTENT DYSPHAGIA Post-op diagnosis: other ( GERD, DYSPHAGIA, GASTRITIS) Procedure: FLEXIBLE TRANSORAL UPPER GASTROINTESTINAL ENDOSCOPY WITH BIOPSIES AND ESOPHAGEAL BALLOON DILATION Surgeon: Lucho Rehman MD Anesthesia: MAC Was an Litigation Docket Manager used for this Procedure?: No Litigation Docket Manager: Arnel Padilla Estimated blood loss (mL): 0 Pathology: other (A- ANTRAL BXS B- PROXIMAL ESOPHAGUS BXS R/O EOE) Condition: stable Disposition: PACU
--- NOTE | 2022-05-16 12:07 | MHC.SHP ---
Pre-Procedural Eval Section A Date of Service: 05/16/22 The patient is an INPATIENT: No Changes since office visit: Yes Patient answered all questions; No Cold of Flu in the past 2 weeks, No New Medical Problems and No Changes in Medication The History & Physical has been completed within 30 days and I have reviewed it.: Yes Section B Chief Complaint: reflux,abdominal distention Allergies: Allergies Allergy/AdvReac Type Severity Reaction Status Date / Time seasonal allergies Allergy Unknown Itchy Eyes Uncoded 07/10/21 14:53 Plan I have reviewed the history and physical and performed a pertinent physical examination on my patient. No changes have occurred unless specified. Time Spent With Patient Time: Total time managing care of this patient today ____ minutes.
--- NOTE | 2022-05-16 12:08 | P.OP_ITS ---
Operative Note Operative Note Date of Service: 05/16/22 Narrative: Pre-op diagnosis: GERD, EPIGASTRIC PAIN, INTERMITTENT DYSPHAGIA Post-op diagnosis:?other ( GERD, DYSPHAGIA, GASTRITIS) Surgeon: Lucho Rehman MD Anesthesia:?MAC FLEXIBLE TRANSORAL UPPER GASTROINTESTINAL ENDOSCOPY WITH BIOPSIES Consent: Indications for the procedure and potential complications of bleeding, perforation, reaction to medications and missed diagnosis were discussed with the patient and informed consent was obtained. Instrument: Olympus GIF H 190 mid size upper endoscope Monitoring: Vital signs and clinical assessment, continuous EKG monitoring, Pulse oximetry, Carbon Dioxide monitoring and blood pressure monitoring were done throughout the procedure. Procedure: The patient was placed in the left lateral decubitis position and pre-procedure medications were administered and a bite block was placed. The endoscope was inserted into the mouth and advanced under direct vision to the third part of duodenum. A careful inspection was made as the upper endoscope was withdrawn including a retroflexed examination of the proximal stomach; Findings and interventions are described below. Findings: Larynx: Normal Esophagus: Mildly tortuous esophagus without stricture or ring - biopsies were obtained from proximal esophagus to check for EOE. GE junction at 40 cms. No esophagitis or Robles's. Esophageal balloon dilation was performed with a 20 mm CRE balloon for 60 seconds Stomach: Mild gastric erythema without ulcers or erosions. Antral biopsies were obtained to check for Helicobacter pylori. Grade 2 flap valve on retroflexed examination of the cardia. Duodenum: Normal bulb and descending duodenum. Intervention: Biopsies and esophageal balloon dilation as noted above Impression and Post Procedure Diagnosis: Endoscopy Findings: ESOPHAGUS: Mildly tortuous esophagus without stricture or ring - biopsies were obtained from proximal esophagus to check for EOE. GE junction at 40 cms. No esophagitis or Robles's. Esophageal balloon dilation was performed with a 20 mm CRE balloon for 60 seconds STOMACH: Mild gastric erythema without ulcers or erosions. Antral biopsies were obtained to check for Helicobacter pylori. Plan: Await pathology results Patient has an appointment on 06/25/22 in the GI Clinic with Abbey Bello FNP- [facility]. Above findings were reviewed with the patient and GERD handout was given in the discharge area Pt advised to continue PPI and Famotidine.
[2022-05-16 12:23] VITALS: BP 139/79; PULSE 72; RESP 15; TEMP 36.8; O2SAT 97
[2022-05-16] MEDS: Lactated Ringers 1,000 ML 100 ML IVCONT (12:27)
[2022-05-16 12:57] VITALS: BP 103/56; PULSE 73; RESP 16; TEMP 36.8; O2SAT 97
[2022-05-16 13:12] VITALS: BP 109/57; PULSE 60; RESP 16; O2SAT 97
[2022-05-16 13:27] VITALS: BP 113/70; PULSE 59; RESP 16; TEMP 36.7; O2SAT 97
== END 2022-05-16 13:54 | disposition home or self-care (01) ==
PROVIDERS: PCP Internal Medicine; Visit Provider Internal Medicine Gastroenterology
PROC: 0DJ08ZZ Inspection of Upper Intestinal Tract, Via Natural or Artificial Opening Endoscopic (ICD-10-PCS; CPT 43235; principal; 2022-05-16 12:50)
DX: K21.9 Gastro-esophageal reflux disease without esophagitis (principal); R13.10 Dysphagia, unspecified; K29.50 Unspecified chronic gastritis without bleeding; R14.0 Abdominal distension (gaseous); J30.2 Other seasonal allergic rhinitis; Z79.899 Other long term (current) drug therapy
CPT/HCPCS: 43249; 43239; 88305; 88342; C1726

== ENCOUNTER → 2022-06-25 15:42 | Outpatient (BNVA) | payer MEDICAID, SELFPAY | PROVIDERS: PCP Internal Medicine; Visit Provider Nurse Practitioner Family | DX: K21.9 Gastro-esophageal reflux disease without esophagitis (principal); R14.0 Abdominal distension (gaseous); Z98.890 Other specified postprocedural states | CPT/HCPCS: 99212 ==

== ENCOUNTER → 2022-09-02 15:00 | Outpatient (BNVA) | payer MEDICAID, SELFPAY | PROVIDERS: PCP Internal Medicine; Visit Provider Nurse Practitioner Family | DX: K21.9 Gastro-esophageal reflux disease without esophagitis (principal); R14.0 Abdominal distension (gaseous); E66.9 Obesity, unspecified; Z68.34 Body mass index [BMI] 34.0-34.9, adult | CPT/HCPCS: 99212 ==

== ENCOUNTER 2023-02-08 04:06 | Emergency (ER) | payer MEDICAID, SELFPAY ==
--- NOTE | ~2023-02-08 | XR_ITS ---
EXAMINATION: XR CHEST CLINICAL INFORMATION: Cough, fever COMPARISON: 07/04/2021 TECHNIQUE: 2 views of the chest were obtained. FINDINGS: The lungs are clear with no focal consolidation. No evidence of pneumothorax, pulmonary edema, or pleural effusions. The cardiomediastinal silhouette is unremarkable. No acute osseous findings. XR/XR chest 2V IMPRESSION: No acute cardiopulmonary findings.
[2023-02-08 04:20] VITALS: BP 135/81; PULSE 77; RESP 20; TEMP 37.7; O2SAT 98; BMI 83.0
[2023-02-08 04:45] LABS: COVID-19 Test Positive (Negative); IDNOW Serial# BCCEAD1C
[2023-02-08 04:55] LABS: IDNOW Serial# 08D9AD1C; Influenza A Negative (Negative); Influenza B2 Negative (Negative)
--- NOTE | 2023-02-08 04:57 | ED.GENADULT ---
HPI - General Adult General Chief complaint: Abdominal Pain Stated complaint: Flu-like symptoms, ?Covid Time Seen by Provider: 02/08/23 04:28 Source: patient Mode of arrival: ambulatory History of Present Illness HPI narrative: 32-year-old male with prior diagnosis of COVID-19 on but reports body aches and fevers and chills since 5 days. He presents with persistent body aches but reports he is able to drink liquids and describes bilateral flank discomfort at the level his ribs he reports he has been coughing. He otherwise denies any urinary symptoms or abdominal discomfort. Patient reports that he was nauseous and vomiting the day before yesterday. Related Data Previous Rx's Medication Instructions Recorded pantoprazole 40 mg tablet,delayed 40 mg PO QAM #90 tabs 04/25/22 release (Protonix) famotidine 40 mg tablet 40 mg PO BEDTIME #90 tabs 09/22/22 ondansetron 4 mg disintegrating 4 mg PO Q8H PRN nausea and 02/08/23 tablet vomiting #7 tabs Allergies Allergy/AdvReac Type Severity Reaction Status Date / Time seasonal allergies Allergy Unknown Itchy Eyes Uncoded 09/02/22 15:07 Review of Systems Review of Systems: Pertinent positives and negatives as stated in the HPI [facility] Past Medical History Source: nursing notes reviewed Medical History GERD (gastroesophageal reflux disease) Gastritis No known health problems Surgical History History of esophagogastroduodenoscopy (EGD) Hx of myringotomy Family History Family History Mother Diabetes Other Breast cancer Social History Social History Alcohol intake: never Patient Tobacco Use Status: Never used Tobacco Advance Directives: No Advance Directives Information Provided: Yes Physical Exam ED Vital Signs: Vital Signs - 24 hr 02/08/23 04:20 Temperature 99.9 F Pulse Rate 77 Respiratory Rate 20 Blood Pressure 135/81 Pulse Oximetry 98 BMI result Body Mass Index 83.0 VITAL SIGNS: Reviewed. GENERAL: Well developed, well nourished, in no acute distress. HEAD: Normocephalic/atraumatic EYES: PERRLA, EOMI EARS: Ext canals without abnormality, TMs non-bulging and non-erythematous NOSE: Nares patent bilateral OROPHARYNX: no oral lesions noted, posterior pharynx clear and non-erythematous without noted tonsillar enlargement/erythema/exudates NECK: Supple, no adenopathy LUNGS: Normal breath sounds. No adventitious sounds or accessory muscle use. SpO2<98> CARDIOVASCULAR: Regular rate and rhythm without noted murmurs ABDOMEN: Soft, non-tender, non-distended with bowel sounds. MUSCULOSKELETAL: No tenderness, deformities, or effusions noted on gross inspection. EXTREMITIES: No cyanosis, clubbing or edema. SKIN: Inspection of the skin reveals no rashes NEUROLOGIC: Alert and oriented x 4. Strength and sensation to light touch were grossly intact x 4. Medications Administered Discontinued Medications Generic Name Dose Route Start Last Admin Trade Name Freq PRN Reason Stop Dose Admin Acetaminophen 975 mg 02/08/23 04:46 02/08/23 05:16 Acetaminophen 325 Mg Tablet PO 02/08/23 04:47 975 mg ONCE ONE Administration Ibuprofen 400 mg 02/08/23 04:46 02/08/23 05:16 Ibuprofen 400 Mg Tablet PO 02/08/23 04:47 400 mg ONCE ONE Administration Medical Decision Making Medical Decision Making [facility] Narrative: 32-year-old male with history and clinical presentation most consistent with continued viral syndrome, patient provided with combination analgesics and repeat COVID-19 as well as influenza testing demonstrates a only COVID-19 is positive, patient is not hypoxic or tachypneic and is oxygenating well without tachycardia. Chest x-ray without infiltrate and otherwise my interpretation is in agreement with radiology's impression. Urinalysis negative for UTI or hematuria. Differential Diagnosis Differential Diagnoses: The differential diagnosis associated with the presentation includes Please see the discussion above Admission/Observation Consideration of admission/observation: Escalation of care including admission/observation considered Please see the discussion above Lab Data [facility] Lab Attestation statement: I reviewed the patient's lab results. Please see the discussion above Labs: Lab Results 02/08/23 02/08/23 Range/Units 04:31 Unknown Urine Color Yellow Urine Appearance Clear Urine pH 5.5 (5.0-9.0) Ur Specific Warner 1.015 (1.005-1.025) Urine Protein Negative (Neg-Trace) mg/dL Urine Glucose (UA) Negative (Negative) mg/dL Urine Ketones Negative (Negative) mg/dL Urine Blood Negative (Negative) Urine Nitrite Negative (Negative) Ur Leukocyte Esterase Negative (Negative) COVID-19 ([facility]SHAT) Positive A (Negative) COVID-19 Clin Com See Note Influenza Type A ([facility]) Negative (Negative) Influenza Type B ([facility]ALY) Negative (Negative) Influenza A & B Note See Note Radiology Impression Discussion of test interpretation with radiology: I have reviewed the radiologist's reading. Radiologist Impression: Please see the discussion above External Record Review External record reviewed: Outpatient record, Prior outpatient labs and Prior outpatient radiology Discharge Plan Discharge Clinical Impression: Viral syndrome, Lab test positive for detection of COVID-19 virus Patient Disposition: Home, Self-Care Instructions: Viral Syndrome (ED), COVID-19 (Coronavirus Disease 2019) (ED) Additional Instructions: 1. Recommend [id number] Tylenol/ibuprofen as needed for body aches and temperatures greater than 100.4. Continue to drink plenty of fluids and your appetite will slowly improve. 2. You have been provided with a prescription for antinausea medication should you experience this again. 3. You must continue to isolate for total of 5 days. Then you will need to follow-up with her were your employer your guidelines are for return to work Return to the ER for any worsening symptoms. Prescriptions: New ondansetron 4 mg tablet,disintegrating 4 mg PO Q8H PRN (Reason: nausea and vomiting) Qty: 7 0RF No Action famotidine 40 mg tablet 40 mg PO BEDTIME Qty: 90 3RF pantoprazole [Protonix] 40 mg tablet,delayed release (DR/EC) 40 mg PO QAM Qty: 90 3RF Referrals: Jatin Peck MD [Primary Care Provider] - Stand Alone Forms: Work/School Release
[2023-02-08] MEDS: Acetaminophen 325 MG TABLET 975 MG PO (05:16)
[2023-02-08] MEDS: Ibuprofen 400 MG TABLET PO (05:16)
[2023-02-08 05:57] LABS: Appearance Urine Clear; Color Urine Yellow; Glucose Urine UA Negative (Negative); Leukocyte Esterase Urine Negative (Negative); Nitrite Urine Negative (Negative); PH 5.5 (5.0-9.0); Specific Gravity - Urine 1.015 (1.005-1.025); Urine Blood Negative (Negative); Urine Ketones Negative (Negative); Urine Protein Negative (Neg-Trace)
== END 2023-02-08 06:24 | disposition home or self-care (01) ==
PROVIDERS: Emergency Provider Student in an Organized Health Care Education/Training Program; PCP Internal Medicine
DX: U07.1 COVID-19 (principal); B34.9 Viral infection, unspecified; M79.10 Myalgia, unspecified site; R50.9 Fever, unspecified; Z79.899 Other long term (current) drug therapy
CPT/HCPCS: 71046; 81003; 87502; 87635; 99283

== ENCOUNTER 2023-04-14 08:08 | Outpatient (AMB) | payer OTHER, SELFPAY ==
[2023-04-14 08:13] VITALS: BP 122/82; PULSE 77; TEMP 36.6; O2SAT 98; BMI 36.8
--- NOTE | 2023-04-14 08:13 | AM.OFFWIN_ITS ---
Intake Vital Signs 04/14/23 08:13 Height 5 ft 11 in Weight 119.748 kg BMI 36.8 BP 122/82 Pulse 77 Pulse Source Pulse Oximeter Temp 97.9 F Temp Source Oral Pulse Oximetry (%) 98 Oxygen Delivery Method Room Air Intake Visit Reasons: EP Wheezing week old cough masked in lobby Intake Note: Pt is here today c/o wheezing and a cough 2 weeks Patient Tobacco Use Status: Never used Tobacco Allergies seasonal allergies Allergy (Unknown, Uncoded 09/02/22 15:07) Itchy Eyes Do you need a note to return to daycare/school/sports/work: Yes HPI HPI Comments History of Present Illness Details 0900 32 year old male history of GERD present s w/ dry cough and wheezing x 2 weeks worse at night. No known sick contacts. Denies fevers, chills, chest pain, shortness of breath, nausea, vomiting, abdominal pain, headache, vision changes, dizziness. Patient does not drink or smoke. No known history of asthma Physical examination with faint expiratory wheezing throughout a minimal however History and physical exam concerning for possible asthma versus viral illness versus bronchitis. Unlikely pneumonia, pulmonary embolism, patient is PERC negative. Plan at this time will discharge with a Z-Luis, prednisone, albuterol. Educated patient on diagnosis and treatment plan, answered all question, patient verbalizes understanding. At this time patient will be discharged home, advised to return with new or worsening symptoms. Educated on worrisome signs and symptoms and when to return. At this time I feel comfortable discharge home. [facility] Medical History GERD (gastroesophageal reflux disease) Gastritis No known health problems Surgical History History of esophagogastroduodenoscopy (EGD) Hx of myringotomy Family History Mother Diabetes Other Breast cancer Social History Alcohol intake: never Patient Tobacco Use Status: Never used Tobacco Review of Systems Const Details: Constitutional : No Weight loss, No Fever, No Chills, No Fatigue, No Malaise ENT/Mouth : No sore throat, No Rhinorrhea Eyes: No Eye Pain, No Swelling, No Redness Cardiovascular : No Chest Pain, No SOB, No Dyspnea on Exertion, No Orthopnea, No Edema, No Palpitations Respiratory : + Cough, No Sputum, + Wheezing Gastrointestinal : No Nausea, No Vomiting, No Diarrhea, No Constipation, No abdominal Pain, No Hematochezia, No Melena Genitourinary : No Dysuria, No Urinary Frequency, No Hematuria, Musculoskeletal : No joint pain, No Myalgias, No Joint Swelling Skin : No Skin Lesions, No rash Neuro : No Weakness, No Numbness, No Dizziness, No Headache Psych : No Anxiety/Panic, No Depression All other systems reviewed and are negative All systems reviewed & are unremarkable except as noted in HPI and below Physical Exam Vital Signs: Last Vital Signs Temp 97.9 F 04/14/23 08:13 Pulse 77 04/14/23 08:13 BP 122/82 04/14/23 08:13 Pulse Ox 98 04/14/23 08:13 Oxygen Delivery Method Room Air 04/14/23 08:13 BMI result Body Mass Index 36.8 vss Appearance: Alert.? Oriented X3.? No acute distress.? Head: Normocephalic, atraumatic, no step-offs or deformities Eyes: Pupils equal, round and reactive to light.? CVS: Normal heart rate and rhythm.? Pulses normal.? Respiratory: No respiratory distress.? Breath sounds faint expiratory wheezing throughout a minimal however.? Abdomen: Soft and nontender.? Skin: Skin warm and dry.? Normal skin color.? Normal skin turgor.? Extremities: No lower extremity edema.? No calf ttp. 5/5 strength to bilateral upper and lower extremities Neuro: Oriented X 3.? No motor deficit.? No sensory deficit. CN 2-12 intact Assessment & Plan Assessment & Plan (1) Bronchitis: Code(s): J40 - Bronchitis, not specified as acute or chronic Plan Take your medications as prescribed. If you were prescribed antibiotics today, it is important that you take your medication to their entirety, do not skip any doses, do not finish them early. Follow-up with your primary care provider this week. Return to the emergency department with new or worsening symptoms. Such as fevers, chills, chest pain, shortness of breath, nausea, vomiting, dizziness, headache, vision changes, lethargy In case of emergency call 911 Medications: New prednisone 40 mg (2 x 20 mg) PO DAILY 10 tabs 0RF 5 days azithromycin For 250 mg dose pack: take 500 mg today (day 1), then 250 mg for 4 days (days 2-5) PO 6 tabs 0RF albuterol sulfate 90 mcg/actuation 2 puffs inhalation Q6H PRN 6.7 grams 0RF shortness of breath or wheezing Coding Level of Care Code Est Pt Level 3 (70251) Diagnoses Bronchitis J40
== END 2023-04-14 09:17 | disposition home or self-care (01) ==
PROVIDERS: PCP Internal Medicine; Visit Provider Physician Assistant
DX: J40 Bronchitis, not specified as acute or chronic (principal)
CPT/HCPCS: 99213

== ENCOUNTER 2023-04-27 11:42 | Outpatient (REF) | payer OTHER, SELFPAY ==
--- NOTE | ~2023-04-27 | XR_ITS ---
EXAMINATION: XR CHEST CLINICAL INFORMATION: Acute bronchitis COMPARISON: Previous chest x-ray February 2023 TECHNIQUE: 2 views of the chest were obtained. FINDINGS: No significant abnormality is noted involving the heart, lungs, mediastinum, bony thorax or soft tissues. XR/XR chest 2V IMPRESSION: Unremarkable examination.
== END 2023-04-27 11:43 | disposition home or self-care (01) ==
LOC: HO.HMGCX 11:42
PROVIDERS: PCP Internal Medicine; Visit Provider Internal Medicine
DX: J20.9 Acute bronchitis, unspecified (principal)
CPT/HCPCS: 71046

== ENCOUNTER 2023-09-25 23:03 | Emergency (ER) | payer OTHER, SELFPAY ==
--- NOTE | 2023-09-25 | ECG_ITS ---
Test Reason : CHEST PAIN Blood Pressure : / mmHG Vent. Rate : 087 BPM Atrial Rate : 087 BPM P-R Int : 158 ms QRS Dur : 098 ms QT Int : 350 ms P-R-T Axes : 040 026 032 degrees QTc Int : 421 ms Normal sinus rhythm Normal ECG When compared with ECG of 04-JUL-2021 17:29, No significant change was found Referred By: Generic ED Physician Electronically Signed By:GREGORIO BENDER MD
--- NOTE | ~2023-09-25 | XR_ITS ---
EXAMINATION: XR CHEST CLINICAL INFORMATION: Chest pain. COMPARISON: 04/27/2023. TECHNIQUE: Frontal view of the chest was obtained. FINDINGS: No significant abnormality is noted involving the heart, lungs, mediastinum, bony thorax or soft tissues. XR/XR chest 1V IMPRESSION: Unremarkable examination.
[2023-09-25 23:31] VITALS: BP 131/84; PULSE 93; RESP 17; TEMP 36.6; O2SAT 96; BMI 37.9
[2023-09-25 23:32] LABS: MANUAL DIFF FLAG NO
[2023-09-25 23:33] LABS: Basophils Absolute Auto 0.1 X10*3/uL (0.0-0.2); Eosinophils Absolute Auto 0.5 X10*3/uL (0.0-0.4); Eosinophils Percent Auto 4.5 % (0-4); Hematocrit 48.4 % (42.0-52.0); Imm Gran Abs Auto 0.05 X10*3/uL (0.00-0.03); Imm Gran Pct Auto 0.4 % (0.0-0.4); Lymphocytes Percent Auto 35.5 % (20-40); Mean Corpuscular HGB Conc 33.1 g/dl (31.0-36.0); Mean Corpuscular Hemoglobin 27.8 pg (27.0-33.0); Mean Platelet Volume 9.5 fL (9.4-12.4); Monocytes Absolute Auto 1.3 X10*3/uL (0.1-1.2); Monocytes Percent Auto 11.6 % (2-11); Neutrophils Absolute Auto 5.3 x10*3/uL (2.0-8.3); Platelet Count 238 X10*3/uL (160-400); Red Blood Count 5.76 X10*6/uL (4.60-5.80); Red Cell Distribution Width 13.1 % (11.0-16.0); White Blood Count 11.2 X10*3/uL (4.8-10.8)
[2023-09-25 23:40] LABS: INTERNATIONAL NORM RATIO 0.9 (0.9-1.1); Prothrombin Time 11.3 SEC (11.1-13.3)
[2023-09-25 23:49] LABS: Alanine Aminotransferase 40 U/L (0-40); Albumin Level 4.6 g/dL (3.5-5.0); Alkaline Phosphatase 61 U/L (39-117); Anion Gap 18 (12-20); Aspartate Amino Transferase 34 U/L (5-37); Bilirubin Direct 0.4 mg/dL (0.0-0.5); Bilirubin Total 1.3 mg/dL (0.0-1.0); Blood Urea Nitrogen 16 mg/dL (9-16); Calcium 9.8 mg/dL (8.4-10.2); Carbon Dioxide 27 mmol/L (22-29); Chloride 102 mmol/L (96-108); Creatinine Clr Calc Pharmacy 127.3; Estimated Glomerular Filt Rate > 60; Glucose Random 101 mg/dL (60-115); Potassium 4.1 mmol/L (3.3-5.1); Sodium 143 mmol/L (135-145)
[2023-09-25 23:52] LABS: B Type Natriuretic Peptide < 10 pg/mL (<100)
[2023-09-25 23:58] LABS: Troponin-I High Sensitivity < 2.7 ng/L (<3.5-35.0)
--- NOTE | 2023-09-26 01:48 | ED_ITS ---
HPI - Chest Pain General Chief Complaint: Chest Pain Stated Complaint: chest pain Time Seen by Provider: 09/26/23 01:18 Source: patient, family (Patient's father), RN notes reviewed and old records reviewed Mode of arrival: ambulatory Limitations: no limitations History of Present Illness HPI narrative: 33-year-old male past medical history significant for GERD, obesity presents for evaluation of chest pain. Patient reports midsternal chest pain since Thursday, 4 days ago His pain is worse with palpation or deep breathing He denies any trauma to the area. His pain does not radiate. He also complains of lower back pain Denies any history of cardiac disease Denies any heavy lifting or injuries He does endorse significant stress at work Patient has a history of GERD missed states this feels different Denies any fevers, cough, shortness of breath Related Data Previous Rx's ?Medication ?Instructions ?Recorded pantoprazole 40 mg tablet,delayed 40 mg PO QAM #90 tabs 04/25/22 release (Protonix) famotidine 40 mg tablet 40 mg PO BEDTIME #90 tabs 09/22/22 ondansetron 4 mg disintegrating 4 mg PO Q8H PRN nausea and 02/08/23 tablet vomiting #7 tabs albuterol sulfate 90 mcg/actuation 2 puff inhalation Q6H PRN 04/14/23 aerosol inhaler shortness of breath or wheezing #6.7 grams azithromycin 250 mg tablet See Rx Instructions PO .COMPLEX #6 04/14/23 tabs prednisone 20 mg tablet 40 mg (2 x 20 mg) PO DAILY 5 days 04/14/23 #10 tabs Allergies Allergy/AdvReac Type Severity Reaction Status Date / Time seasonal allergies Allergy Unknown Itchy Eyes Uncoded 09/25/23 23:37 Review of Systems 2 Constitutional: Constitutional: Denies body ache(s), Denies chills and Denies fever(s) Eyes: Eyes: Denies blurry vision ENT: Denies vertigo Cardiovascular: Cardiovascular: Reports chest pain and Denies dyspnea Respiratory: Respiratory: Denies cough and Denies dyspnea Gastrointestinal: Gastrointestinal: Denies abdominal pain, Reports nausea and Denies vomiting Genitourinary: Genitourinary: Denies hematuria and Denies flank pain Musculoskeletal: Musculoskeletal: Reports back pain Integumentary/Breasts: Skin/Breast: Denies rash Neurologic: Denies vertigo Psychiatric: Psychiatric: Denies anxiety [facility] Past Medical History Medical History GERD (gastroesophageal reflux disease) Gastritis No known health problems Surgical History History of esophagogastroduodenoscopy (EGD) Hx of myringotomy Family History Family History Mother Diabetes Other Breast cancer Social History Social History Alcohol intake: never Patient Tobacco Use Status: Never used Tobacco Advance Directives: No Advance Directives Information Provided: Yes Do you have a plan to hurt others: No Plan Physical Exam 2 Vital Signs: Vital Signs: Last Vital Signs Temp 98 F 09/25/23 23:31 Pulse 93 09/25/23 23:31 Resp 17 09/25/23 23:31 BP 131/84 09/25/23 23:31 Pulse Ox 96 09/25/23 23:31 O2 Del Method Room Air 09/25/23 23:31 BMI result Body Mass Index 37.9 Const: General: healthy appearing, comfortable, no acute distress, alert and awake Nutritional Appearance: well nourished Orientation/consciousness: p atient oriented x3 HEENT: Head: Yes normocephalic and Yes atraumatic Eyes: Eyelids: Yes eyelids normal Conjunctivae: conjunctivae normal S clerae: sclerae normal Corneas: corneas normal Pupils: Equal, round and reactive pupils present EOM: EOMs intact bilaterally Neck: Neck: Yes full ROM Resp: Effort & Inspection: normal respiratory effort, able to speak in complete sentences, no audible wheezes and not labored Auscultation: clear to auscultation bilaterally Cardio: Rate: regular rate Rhythm: regular rhythm GI: Inspection: No distended Palpation (GI): Soft to palpation, not firm, nontender, no guarding and not rigid Skin: General skin exam: elasticity normal Neuro: General: patient oriented x3 Cranial nerves: Yes Equal, round and reactive pupils present and Yes Bilaterally intact EOM present Cognition (Neuro): normal cognition Medical Decision Making Medical Decision Making MDM Narrative: 33-year-old male presents for evaluation chest pain. He has no risk factors for cardiac disease. He has had pain for 4 days and his troponin is negative, his EKG is nonischemic. This rules him out for ACS. He is PERC negative. His vital signs are within normal limits. His chest x-ray is clear. This rules out pneumonia or pneumothorax. His pain is reproducible on exam. Most likely diagnosis is musculoskeletal pain versus anxiety/stress. Patient is stable for discharge to follow-up with his PCP Differential Diagnosis Differential Diagnoses: The differential diagnosis associated with the presentation includes Atypical chest pain Coronary artery disease Anxiety Costochondritis Chest wall pain ACS less likely PE less likely Lab Data MDM Lab Attestation statement: I reviewed the patient's lab results. Patient has a mild leukocytosis to 11.2 but there is no sign of infection. There is no significant anemia. Normal platelet count. No electrolyte abnormalities. Troponin undetectable 09/25/23 23:26 09/25/23 23:26 Labs: Lab Results 09/25/23 09/25/23 Range/Units 23:25 23:26 WBC 11.2 H (4.8-10.8) X10*3/uL RBC 5.76 (4.60-5.80) X10*6/uL Hgb 16.0 (14.0-18.0) g/dl Hct 48.4 (42.0-52.0) % MCV 84.0 (80.0-98.0) fL MCH 27.8 (27.0-33.0) pg MCHC 33.1 (31.0-36.0) g/dl RDW 13.1 (11.0-16.0) % Plt Count 238 (160-400) X10*3/uL MPV 9.5 (9.4-12.4) fL Immature Gran % (Auto) 0.4 (0.0-0.4) % Neut % (Auto) 47.0 (45-73) % Lymph % (Auto) 35.5 (20-40) % [place] % (Auto) 11.6 H (2-11) % Eos % (Auto) 4.5 H (0-4) % Baso % (Auto) 1.0 (0-2) % Lymph # (Auto) 4.0 (1.2-4.9) X10*3/uL [place] # (Auto) 1.3 H (0.1-1.2) X10*3/uL Eos # (Auto) 0.5 H (0.0-0.4) X10*3/uL Baso # (Auto) 0.1 (0.0-0.2) X10*3/uL Abs Immat Gran (auto) 0.05 H (0.00-0.03) X10*3/uL Absolute Neuts (auto) 5.3 (2.0-8.3) x10*3/uL Absolute Nucleated RBC 0.000 (0.0-0.012) X10*3/uL Nucleated RBC % (auto) 0.0 (0.0-0.2) /100WBC PT 11.3 (11.1-13.3) SEC INR 0.9 (0.9-1.1) Sodium 143 (135-145) mmol/L Potassium 4.1 (3.3-5.1) mmol/L Chloride 102 (96-108) mmol/L Carbon Dioxide 27 (22-29) mmol/L Anion Gap 18 (12-20) BUN 16 (9-16) mg/dL Creatinine 1.09 (0.5-1.4) mg/dL Estim Creat Clear Calc 127.3 Estimated GFR > 60 Random Glucose 101 (60-115) mg/dL Calcium 9.8 (8.4-10.2) mg/dL Total Bilirubin 1.3 H (0.0-1.0) mg/dL Direct Bilirubin 0.4 (0.0-0.5) mg/dL AST 34 (5-37) U/L ALT 40 (0-40) U/L Alkaline Phosphatase 61 (39-117) U/L Troponin I High Sens < 2.7 (<3.5-35.0) ng/L B-Natriuretic Peptide < 10 (<100) pg/mL Total Protein 8.0 (6.5-8.0) g/dL Albumin 4.6 (3.5-5.0) g/dL Independent Interpretation I performed an independent interpretation of an: EKG (Sinus rhythm with a rate of 87 beats per minute. No ST segment changes) and Plain X-Ray Interpretation: No focal infiltrates or pneumothorax Radiology Impression Discussion of test interpretation with radiology: I have reviewed the radiologist's reading. Radiologist Impression: XR/XR chest 1V IMPRESSION: Unremarkable examination. Discharge Plan Discharge Clinical Impression: Atypical chest pain Patient Disposition: Home, Self-Care Instructions: Chest Pain (ED) Additional Instructions: Your workup in the ER today was reassuring. This includes your EKG, chest x-ray, blood work Use Tylenol as needed for your pain Follow-up with your primary doctor Return for new or worsening symptoms Prescriptions: No Action famotidine 40 mg tablet 40 mg PO BEDTIME Qty: 90 3RF ondansetron 4 mg tablet,disintegrating 4 mg PO Q8H PRN (Reason: nausea and vomiting) Qty: 7 0RF prednisone 20 mg tablet 40 mg PO DAILY 5 Days Qty: 10 0RF albuterol sulfate 90 mcg/actuation HFA aerosol inhaler 2 puff inhalation Q6H PRN (Reason: shortness of breath or wheezing) Qty: 6.7 0RF azithromycin 250 mg tablet See Rx Instructions PO .COMPLEX Qty: 6 0RF Rx Instructions: For 250 mg dose pack: take 500 mg today (day 1), then 250 mg for 4 days (days 2-5) PO pantoprazole [Protonix] 40 mg tablet,delayed release (DR/EC) 40 mg PO QAM Qty: 90 3RF Stand Alone Forms: Work/School Release Print Language: Austrian
[2023-09-26 02:09] VITALS: BP 119/89; PULSE 78; RESP 18; TEMP 36.9; O2SAT 97
== END 2023-09-26 02:10 | disposition home or self-care (01) ==
PROVIDERS: Emergency Medicine; Emergency Provider Internal Medicine; PCP Internal Medicine
DX: R07.9 Chest pain, unspecified (principal); K21.9 Gastro-esophageal reflux disease without esophagitis
CPT/HCPCS: 36415; 71045; 80048; 80076; 83880; 84484; 85025; 85610; 93005; 99283

== ENCOUNTER → 2023-09-25 23:04 | Outpatient (BNV) | payer OTHER, SELFPAY | PROVIDERS: Emergency Provider Internal Medicine; PCP Internal Medicine; Visit Provider Internal Medicine Cardiovascular Disease | DX: R07.9 Chest pain, unspecified (principal) | CPT/HCPCS: 93010 ==

== ENCOUNTER 2024-07-04 06:47 | Outpatient (REF) | payer OTHER, SELFPAY ==
[2024-07-04 07:00] LABS: MANUAL DIFF FLAG NO
[2024-07-04 07:40] LABS: Basophils Absolute Auto 0.1 X10*3/uL (0.0-0.2); Basophils Percent Auto 1.1 % (0-2); Eosinophils Absolute Auto 0.5 X10*3/uL (0.0-0.4); Eosinophils Percent Auto 5.7 % (0-4); Hematocrit 46.5 % (42.0-52.0); Hemoglobin 15.5 g/dl (14.0-18.0); Imm Gran Abs Auto 0.07 X10*3/uL (0.00-0.03); Imm Gran Pct Auto 0.8 % (0.0-0.4); Lymphocytes Absolute Auto 2.9 X10*3/uL (1.2-4.9); Lymphocytes Percent Auto 34.5 % (20-40); Mean Corpuscular HGB Conc 33.3 g/dl (31.0-36.0); Mean Corpuscular Hemoglobin 27.4 pg (27.0-33.0); Mean Corpuscular Volume 82.3 fL (80.0-98.0); Mean Platelet Volume 9.5 fL (9.4-12.4); Monocytes Percent Auto 11.7 % (2-11); Neutrophils Absolute Auto 3.8 x10*3/uL (2.0-8.3); Neutrophils Percent Auto 46.2 % (45-73); Platelet Count 265 X10*3/uL (160-400); Red Blood Count 5.65 X10*6/uL (4.60-5.80); Red Cell Distribution Width 13.2 % (11.0-16.0); White Blood Count 8.3 X10*3/uL (4.8-10.8)
[2024-07-04 08:28] LABS: Albumin Level 4.3 g/dL (3.5-5.0); Alkaline Phosphatase 71 U/L (39-117); Anion Gap 13 (12-20); Aspartate Amino Transferase 41 U/L (5-37); Bilirubin Total 0.8 mg/dL (0.0-1.0); Blood Urea Nitrogen 13 mg/dL (9-16); Calcium 9.3 mg/dL (8.4-10.2); Carbon Dioxide 25 mmol/L (22-29); Chloride 107 mmol/L (96-108); Estimated Glomerular Filt Rate > 60; Glucose Random 97 mg/dL (60-115); Iron 50 mcg/dL (45-160); Percent Iron Saturation 18 % (15-50); Potassium 4.1 mmol/L (3.3-5.1); Sodium 141 mmol/L (135-145); Total Iron Binding Capacity 282 mcg/dL (228-428); Total Protein 7.9 g/dL (6.5-8.0); Unsaturated Iron Binding 232 ug/dL
[2024-07-04 08:33] LABS: Alanine Aminotransferase 39 U/L (0-40)
[2024-07-04 08:41] LABS: Ferritin 57 ng/mL (20-250); Folate 8.3 ng/mL (> or = 4.0); Thyroid Stimulating Hormone 3.24 uIU/mL (0.32-4.0); Vitamin B12 318 pg/mL (200-900); Vitamin D 25-OH Total 25.9 ng/mL (>30)
[2024-07-08 17:43] LABS: Testosterone, Total 348 ng/dL (250-1100)
== END 2024-07-04 06:48 | disposition home or self-care (01) ==
LOC: HO.LAB 06:47
PROVIDERS: PCP Internal Medicine; Visit Provider Internal Medicine
DX: R89.1 Abnormal level of hormones in specimens from other organs, systems and tissues (principal); K29.70 Gastritis, unspecified, without bleeding; R53.83 Other fatigue
CPT/HCPCS: 36415; 80053; 82306; 82607; 82728; 82746; 83540; 84403; 84443; 85025

== ENCOUNTER 2025-01-30 17:01 | Emergency (ER) | payer OTHER, SELFPAY ==
--- NOTE | ~2025-01-30 | XR_ITS ---
CLINICAL HISTORY: pain 1 view abdomen Comparison: None provided Findings: No pneumoperitoneum or pneumatosis. No abnormal calcifications. No acute fractures. IMPRESSION: The bowel gas pattern is normal This document has been electronically signed by: Salvador Chacon MD on 01/30/2025 23:11:21
[2025-01-30 17:21] VITALS: BP 142/78; PULSE 79; RESP 16; TEMP 36.4; O2SAT 100; BMI 26.6
--- NOTE | 2025-01-30 17:31 | ED_ITS ---
HPI - General Adult General Chief complaint: Abdominal Pain Stated complaint: blood in stool, abd pain Time Seen by Provider: 01/30/25 20:36 Source: patient Limitations: no limitations History of Present Illness ED Provider: Jocelyn Puckett PA-C HPI narrative: 34-year-old male with a history of obesity, GERD and asthma presents with rectal bleeding x 4-5 days. Patient states he has noted bright red blood per rectum while having bowel movements, today, he felt there was more blood in the toilet. Denies abdominal pain, rectal pain, presence of known hemorrhoids or fever. Related Data Previous Rx's ?Medication ?Instructions ?Recorded famotidine 40 mg tablet 40 mg PO BEDTIME #90 tabs ondansetron 4 mg disintegrating 4 mg PO Q8H PRN nausea and 02/08/23 tablet vomiting #7 tabs albuterol sulfate 90 mcg/actuation 2 puff inhalation Q 6H PRN 04/14/23 aerosol inhaler shortness of breath or wheez ing #6.7 grams azithromycin 250 mg tablet See Rx Instructions PO .COM PLEX #6 04/14/23 tabs prednisone 20 mg tablet 40 mg (2 x 20 mg) PO DAILY 5 days 04/14/23 #10 tabs pantoprazole 40 mg tablet,delayed 40 mg PO QAM #90 tab s 02/08/24 release Allergies Allergy/AdvReac Type Severity Reaction Status Date / Time seasonal allergies Allergy Unknown Itchy Eyes Uncoded 01/30/25 17:32 Review of Systems 2 Review of Systems: Yes all other systems are reviewed and are negative Constitutional: Constitutional: Denies fatigue and Denies fever(s) Cardiovascular: Cardiovascular: Denies chest pain and Denies dyspnea Respiratory: Respiratory: Denies dyspnea Gastrointestinal: Gastrointestinal: Denies abdominal pain, Reports hematochezia, Denies constipation, Denies diarrhea, Denies nausea and Denies vomiting Endocrine: Endocrine: Denies fatigue PMFSH Past Medical History Attestation statement: The following information was validated with the patient. Medical History GERD (gastroesophageal reflux disease) Gastritis No known health problems Surgical History History of esophagogastroduodenoscopy (EGD) Hx of myringotomy Family History Family History Mother Diabetes Other Breast cancer Social History Social History Alcohol intake: never Patient Tobacco Use Status: Never used Tobacco Smoked in Last 30 Days: No Use of substances other than those prescribed or required for medical reasons: No Advance Directives: No Advance Directives Information Provided: No Physical Exam ED Vital Signs: Vital Signs - 24 hr 01/30/25 17:21 01/30/25 20:57 01/30/25 22:18 Temperature 97.5 F 97.8 F 98.2 F Pulse Rate 79 76 74 Respiratory Rate 16 18 20 Blood Pressure 142/78 H 140/76 H 139/83 Pulse Oximetry 100 99 99 Oxygen Delivery Method Room Air Room Air Room Air 01/31/25 00:02 Temperature 98.2 F Pulse Rate 74 Respiratory Rate 20 Blood Pressure 139/83 Pulse Oximetry 99 Oxygen Delivery Method Room Air BMI result Body Mass Index 26.6 Const Other: Alert well-appearing Orientation/consciousness: patient oriented x3 Resp Effort & Inspection: normal respiratory effort Cardio Other: Normal peripheral perfusion GI Other: Abdomen is soft, nontender no guarding obese abdomen no distention, stool brown, blood-tinged rectal secretions, guaiac positive, no obvious internal or external hemorrhoids Skin Other: Warm dry no rash Neuro General: patient oriented x3, gait normal, no focal motor deficits and CN's II- XI intact bilaterally Psych Other: Cooperative Course Course Course Narrative: This is a Rapid Medical Examination (RME) performed by Dorcas Acosta PA-C in triage. Full HPI, ROS, assessment and treatment plan per primary provider in the Main ED. Hx: 34 yo M here for eval of abdominal pain x5 days and bright red blood in stool x today. no thinners. hx gastritis and PUD. also reports recent elevated BPs, no hx HTN. Plan: labs Medical Decision Making Medical Decision Making MDM Narrative: 34-year-old male with a history of obesity, GERD and asthma presents with rectal bleeding x 4-5 days. Patient states he has noted bright red blood per rectum while having bowel movements, today, he felt there was more blood in the toilet. Denies abdominal pain, rectal pain, presence of known hemorrhoids or fever. Problem: GERD History: Per patient I have considered the following differential diagnoses: Diverticulosis, colitis, internal versus external hemorrhoids, polyps, constipation Plan: Patient here with reported rectal bleeding over several days. Screening labs obtained from triage they are unremarkable, his blood counts are stable. I suspect he likely has internal hemorrhoids as the cause of the bleeding when he has a bowel movement. Obtaining a KUB to be sure he is not constipated. No indication for advanced imaging, the patient can follow up as an outpatient. I have independently reviewed the following tests: Labs: No leukocytosis, not anemic, no electrolyte abnormality noted, guaiac positive KUB:Findings: No pneumoperitoneum or pneumatosis. No abnormal calcifications. No acute fractures. IMPRESSION: The bowel gas pattern is normal Differential Diagnosis Differential Diagnoses: The differential diagnosis associated with the presentation includes See medical decision-making Admission/Observation Consideration of admission/observation: Escalation of care including admission/observation considered Not applicable Lab Data MDM Lab Attestation statement: I reviewed the patient's lab results. 01/30/25 17:41 01/30/25 17:41 Labs: Lab Results 01/30/25 01/30/25 Range/Units 17:41 21:14 WBC 8.8 (4.8-10.8) X10*3/uL RBC 5.45 (4.60-5.80) X10*6/uL Hgb 15.0 (14.0-18.0) g/dl Hct 44.9 (42.0-52.0) % MCV 82.4 (80.0-98.0) fL MCH 27.5 (27.0-33.0) pg MCHC 33.4 (31.0-36.0) g/dl RDW 13.4 (11.0-16.0) % Plt Count 250 (160-400) X10*3/uL MPV 9.4 (9.4-12.4) fL Immature Gran % (Auto) 0.3 (0.0-0.4) % Neut % (Auto) 41.9 L (45-73) % Lymph % (Auto) 33.6 (20-40) % [place] % (Auto) 15.8 H (2-11) % Eos % (Auto) 7.3 H (0-4) % Baso % (Auto) 1.1 (0-2) % Lymph # (Auto) 3.0 (1.2-4.9) X10*3/uL [place] # (Auto) 1.4 H (0.1-1.2) X10*3/uL Eos # (Auto) 0.6 H (0.0-0.4) X10*3/uL Baso # (Auto) 0.1 (0.0-0.2) X10*3/uL Abs Immat Gran (auto) 0.03 (0.00-0.03) X10*3/uL Absolute Neuts (auto) 3.7 (2.0-8.3) x10*3/uL Absolute Nucleated RBC 0.000 (0.0-0.012) X10*3/uL Nucleated RBC % (auto) 0.0 (0.0-0.2) /100WBC Sodium 141 (135-145) mmol/L Potassium 4.1 (3.3-5.1) mmol/L Chloride 107 (96-108) mmol/L Carbon Dioxide 27 (22-29) mmol/L Anion Gap 11 L (12-20) BUN 21 H (9-16) mg/dL Creatinine 0.80 (0.5-1.4) mg/dL Estim Creat Clear Calc 132.5 Estimated GFR > 60 Random Glucose 85 (60-115) mg/dL Calcium 9.4 (8.4-10.2) mg/dL Magnesium 2.1 (1.6-2.6) mg/dL Total Bilirubin 1.0 (0.0-1.0) mg/dL AST 46 H (5-37) U/L ALT 59 H (0-40) U/L Alkaline Phosphatase 70 (39-117) U/L Total Protein 7.6 (6.5-8.0) g/dL Albumin 4.7 (3.5-5.0) g/dL Lipase 34 (8-78) U/L Stool Occult Blood POSITIVE (NEGATIVE) Radiology Impression Discussion of test interpretation with radiology: I have reviewed the radiologist's reading. Discharge Plan Discharge Clinical Impression: Bright red rectal bleeding Patient Disposition: Home, Self-Care Instructions: Rectal Bleeding (ED) Additional Instructions: All of your screening labs were normal, in regard to the rectal bleeding, this could be secondary to internal hemorrhoids or from simply straining to have a bowel movement. Follow up with your primary care provider as needed. If you begin to have large volume bloody bowel movements, passing clots, seek medical attention. Prescriptions: No Action famotidine 40 mg tablet 40 mg PO BEDTIME Qty: 90 3RF pantoprazole 40 mg tablet,delayed release (DR/EC) 40 mg PO QAM Qty: 90 0RF ondansetron 4 mg tablet,disintegrating 4 mg PO Q8H PRN (Reason: nausea and vomiting) Qty: 7 0RF prednisone 20 mg tablet 40 mg PO DAILY 5 Days Qty: 10 0RF albuterol sulfate 90 mcg/actuation HFA aerosol inhaler 2 puff inhalation Q6H PRN (Reason: shortness of breath or wheezing) Qty: 6.7 0RF azithromycin 250 mg tablet See Rx Instructions PO .COMPLEX Qty: 6 0RF Rx Instructions: For 250 mg dose pack: take 500 mg today (day 1), then 250 mg for 4 days (days 2-5) PO Interventions: ED Discharge Assessment Last Done: 01/31/25 00:02 Discharge Date/Time: 01/31/25 00:03 Print Language: Danish
[2025-01-30 17:59] LABS: MANUAL DIFF FLAG NO
[2025-01-30 18:01] LABS: Hematocrit 44.9 % (42.0-52.0); Hemoglobin 15.0 g/dl (14.0-18.0); Imm Gran Abs Auto 0.03 X10*3/uL (0.00-0.03); Imm Gran Pct Auto 0.3 % (0.0-0.4); Lymphocytes Absolute Auto 3.0 X10*3/uL (1.2-4.9); Mean Corpuscular HGB Conc 33.4 g/dl (31.0-36.0); Mean Corpuscular Hemoglobin 27.5 pg (27.0-33.0); Mean Corpuscular Volume 82.4 fL (80.0-98.0); NRBC Abs Auto 0.000 X10*3/uL (0.0-0.012); NRBC Pct Auto 0.0 /100WBC (0.0-0.2); Platelet Count 250 X10*3/uL (160-400); Red Blood Count 5.45 X10*6/uL (4.60-5.80); White Blood Count 8.8 X10*3/uL (4.8-10.8)
[2025-01-30 18:31] LABS: Alanine Aminotransferase 59 U/L (0-40); Albumin Level 4.7 g/dL (3.5-5.0); Alkaline Phosphatase 70 U/L (39-117); Anion Gap 11 (12-20); Aspartate Amino Transferase 46 U/L (5-37); Blood Urea Nitrogen 21 mg/dL (9-16); Calcium 9.4 mg/dL (8.4-10.2); Carbon Dioxide 27 mmol/L (22-29); Chloride 107 mmol/L (96-108); Creatinine Clr Calc Pharmacy 132.5; Estimated Glomerular Filt Rate > 60; Lipase 34 U/L (8-78); Magnesium 2.1 mg/dL (1.6-2.6); Potassium 4.1 mmol/L (3.3-5.1); Sodium 141 mmol/L (135-145); Total Protein 7.6 g/dL (6.5-8.0)
--- OUTSIDE RECORDS SUMMARY | 2025-01-30 20:50 | XMS_ITS | Encounter Summary ---
Author Organization [facility] Address [address] [place] [id number] Phone Care Team Providers Care Glue Line Operator Name Role Phone Jatin Peck DO Primary Care Provider [phone] Reason for Referral * Consultation (Elective) - Closed Specialty Diagnoses / Procedures Referred By Contac t Referred To Contact Diagnoses Hypersomnia Jatin Peck DO Phone: tel: fax: [email or web address] [facility] [address] [place] [address] Phone: tel: Referral ID Status Reason Start Date Expiration Date Visits Re quested Visits Authorized [id number] Closed 01/15/2021 01/15/2022 1 1 Encounter Details Date Type Department Care Team (Latest Contact Info) Description 01/15/2021 Transcribe Orders [facility] [address] [place] [address] 3rd Floor, [address] [place] [id number] Tito Garzon MD [address] [place] [id number] [email or web address] Hypersomnia (Primary Dx) Social History Tobacco Use Types Packs/Day Years Used Date Smoking Tobacco: Never Assessed Sex and Gender Information Value Date Recorded Sex Assigned at Not on file Legal Sex Male 1:40 PM EDT Gender Identity Not on file Sexual Orientation Not on file documented as of this encounter Plan of Treatment Scheduled Referrals Name Type Priority Associated Diagnoses Order Schedule Ambulatory referral to [facility] Sleep Medicine Outpatient Referral Routine Hypersomnia Ordered: 01/15/2021 documented as of this encounter Visit Diagnoses Diagnosis Hypersomnia- Primary Hypersomnia, unspecified documented in this encounter Care Teams Glue Line Operator Relationship Specialty Start Date End Date Jatin Peck DO [email or web address] PCP - General Internal Medicine 12/24/20 documented as of this encounter Additional Source Comments The information contained in this document represents components of the legal health record. It is not the complete legal health record.[facility]
--- OUTSIDE RECORDS SUMMARY | 2025-01-30 20:50 | XMS_ITS | Clinical Summary ---
Author Organization [facility] Address [address] [place] [address] Phone Care Team Providers Care Assembly Machine Operator Name Role Phone Jatin Peck DO Primary Care Provider [phone] Social History Tobacco Use Types Packs/Day Years Used Date Smoking Tobacco: Never Assessed Education Answer Date Recorded Are you interested in more education? Not on irena e 11/20/2023 Are you concerned about learning? Not on file 11/20/2023 No 11/20/2023 No 11/20/2023 Digital Access Answer Date Recorded No 11/20/2023 No 11/20/2023 Reliable internet access at home? Not on file 11/20/2023 Device with a working camera? Not on file Sex and Gender Information Value Date Recorded Sex Assigned at Not on file Legal Sex Male 1:40 PM EDT Gender Identity Not on file Sexual Orientation Not on file Plan of Treatment Not on file Medical Devices Not on file Insurance [facility] NET PARTIAL [address] [place], [place] [address]O NET PARTIAL Member Subscriber Plan / Payer (Ef fective 2023-Present) Name:Bill Pichardo Relation to Subscriber:Self Name:Bill Pichardo Payer ID:Not on file Group ID:Not on file Type:Medicaid Address: [address] PART[address] Member Subscriber Plan / Payer (Ef fective 2023-Present) Name:Bill Pichardo Relation to Subscriber:Self Name:Bill Pichardo Payer ID:Not on file Group ID:Not on file Type:Medicaid Address: [address] HMO [facility] [employer] NET PARTIAL Member Subscriber Plan / Payer (Ef fective 2023-) Name:Bill Pichardo Relation to Subscriber:Self Name:Bill Pichardo Payer ID:Not on file Group ID:Not on file Type:Medicaid Address: [address] [facility] NET PARTIAL Member Subscriber Plan / Payer (Ef fective 2023-) Name:Bill Pichardo Relation to Subscriber:Self Name:Bill Pichardo Payer ID:Not on file Group ID:Not on file Type:Medicaid Address: [facility], [address] HMO [facility] PARTIAL HMO Care Teams Assembly Machine Operator Relationship Specialty Start Date End Date Jatin Peck DO [email or web address] PCP - General Internal Medicine 12/24/20 Additional Source Comments The information contained in this document represents components of the legal health record. It is not the complete legal health record.[facility]
[2025-01-30 20:57] VITALS: BP 140/76; PULSE 76; RESP 18; TEMP 36.6; O2SAT 99
[2025-01-30 21:19] LABS: OBS Int Ctl Valid YES; OBS1 POSITIVE (NEGATIVE)
[2025-01-30 22:18] VITALS: BP 139/83; PULSE 74; RESP 20; TEMP 36.8; O2SAT 99
[2025-01-31 00:02] VITALS: BP 139/83; PULSE 74; RESP 20; TEMP 36.8; O2SAT 99
== END 2025-01-31 00:03 | disposition home or self-care (01) ==
PROVIDERS: Physician Assistant Medical; Emergency Provider Emergency Medicine; PCP Internal Medicine
DX: K92.1 Melena (principal); R10.9 Unspecified abdominal pain; K21.9 Gastro-esophageal reflux disease without esophagitis
CPT/HCPCS: 36415; 74018; 80053; 82272; 83690; 83735; 85025; 99283; 99284

== ENCOUNTER → 2025-01-30 21:09 | Outpatient (BNV) | payer OTHER, SELFPAY | PROVIDERS: Emergency Provider Emergency Medicine; PCP Internal Medicine; Visit Provider Radiology Diagnostic Radiology | DX: R10.84 Generalized abdominal pain (principal) | CPT/HCPCS: 74018 ==

== ENCOUNTER 2025-02-15 06:02 | Outpatient (REF) | payer OTHER, SELFPAY ==
--- OUTSIDE RECORDS SUMMARY | 2025-02-15 06:05 | XMS_ITS | Encounter Summary ---
Author Organization [facility] Address [address] [place] [id number] Phone Care Team Providers Care Load Out Supervisor Name Role Phone Jatin Peck DO Primary Care Provider [phone] Reason for Referral * Consultation (Elective) - Closed Specialty Diagnoses / Procedures Referred By Contac t Referred To Contact Diagnoses Hypersomnia Jatin Peck DO Phone: tel: fax: [email or web address] [address] [place] [address] Phone: tel: Referral ID Status Reason Start Date Expiration Date Visits Re quested Visits Authorized [id number] Closed 01/15/2021 01/15/2022 1 1 Encounter Details Date Type Department Care Team (Latest Contact Info) Description 01/15/2021 Transcribe Orders [facility] [address] [place] [address] [address]rd Floor, [address] [place] [id number] Tito Garzon MD [address] [place] [id number] [email or web address] Hypersomnia (Primary Dx) Social History Tobacco [...] Associated Diagnoses Order Schedule Ambulatory referral to [facility] Sleep Medicine Outpatient Referral Routine Hypersomnia Ordered: 01/15/2021 documented as of this encounter Visit Diagnoses Diagnosis Hypersomnia- Primary Hypersomnia, unspecified documented in this encounter Care Teams Load Out Supervisor Relationship Specialty Start Date End Date Jatin Peck DO [email or web address] PCP - General Internal Medicine 12/24/20 documented as of this encounter Additional Source Comments The information contained in this document represents components of the legal health record. It is not the complete legal health record.[facility]
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
--- OUTSIDE RECORDS SUMMARY | 2025-02-15 06:05 | XMS_ITS | Clinical Summary ---
Author Organization [facility] Address [address] [place] [address] Phone Care Team Providers Care Shadow Graph Weight Operator Name Role Phone Jatin Peck DO Primary Care Provider [phone] Social History Tobacco Use Types Packs/Day Years [...] file Medical Devices Not on file Insurance [facility] NET PARTIAL [address] [place], [place] [id number] NET PARTIAL Member Subscriber Plan / Payer (Ef fective 2023-Present) Name:Bill Pichardo Relation to Subscriber:Self Name:Bill Pichardo Payer ID:Not on file Group ID:Not on file Type:Medicaid [address] [address] [facility] Address: [place] [address] PARTIAL Member Subscriber Plan / Payer (Ef fective 2023-Present) Name:Bill Pichardo Relation to Subscriber:Self Name:Bill Pichardo Payer ID:Not on file Group ID:Not on file Type:Medicaid Address: [address] HMO [facility] NET PARTIAL Member Subscriber Plan / Payer (Ef fective 2023-) Name:Bill Pichardo Relation to Subscriber:Self Name:Bill Pichardo Payer ID:Not on file Group ID:Not on file Type:Medicaid [address]: [address] [facility] [facility] NET PARTIAL Member Subscriber Plan / Payer (Ef fective 2023-) Name:Bill Pichardo Relation to Subscriber:Self Name:Bill Pichardo Payer ID:Not on file Group ID:Not on file Type:Medicaid Address: [employer], [address] HMO [facility] PARTIAL HMO Care Teams Shadow Graph Weight Operator Relationship Specialty Start Date End Date Jatin Peck DO [email or web address] PCP - General Internal Medicine 12/24/20 Additional Source Comments The information contained in this document represents components of the legal health record. It is not the complete legal health record.[facility]
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
[2025-02-15 06:15] LABS: MANUAL DIFF FLAG NO
[2025-02-15 07:48] LABS: Hematocrit 47.5 % (42.0-52.0); Hemoglobin 15.5 g/dl (14.0-18.0); Imm Gran Abs Auto 0.03 X10*3/uL (0.00-0.03); Imm Gran Pct Auto 0.4 % (0.0-0.4); Lymphocytes Absolute Auto 3.2 X10*3/uL (1.2-4.9); Mean Corpuscular HGB Conc 32.6 g/dl (31.0-36.0); Mean Corpuscular Hemoglobin 27.4 pg (27.0-33.0); Mean Corpuscular Volume 84.1 fL (80.0-98.0); NRBC Abs Auto 0.000 X10*3/uL (0.0-0.012); NRBC Pct Auto 0.0 /100WBC (0.0-0.2); Platelet Count 252 X10*3/uL (160-400); Red Blood Count 5.65 X10*6/uL (4.60-5.80); White Blood Count 7.6 X10*3/uL (4.8-10.8)
[2025-02-15 08:31] LABS: Iron 73 mcg/dL (45-160); Magnesium 2.1 mg/dL (1.6-2.6); Percent Iron Saturation 25 % (15-50); Total Iron Binding Capacity 288 mcg/dL (228-428); Unsaturated Iron Binding 215 ug/dL
[2025-02-15 08:39] LABS: Ferritin 61 ng/mL (20-250); Free T4 (Free Thyroxine) 1.00 ng/dL (0.71-1.85); Thyroid Stimulating Hormone 2.37 uIU/mL (0.32-4.0)
[2025-02-15 08:54] LABS: Folate 9.8 ng/mL (> or = 4.0); Vitamin B12 307 pg/mL (200-900)
[2025-02-16 05:58] LABS: Lyme Abs Screen <0.90 index
[2025-02-22 02:54] LABS: A. Phagocytophilum Ab IgG <1:64 (<1:64); A. Phagocytophilum Ab IgM <1:20 (<1:20)
== END 2025-02-15 06:03 | disposition home or self-care (01) ==
LOC: HO.LAB 06:02
PROVIDERS: PCP Internal Medicine; Visit Provider Physician Assistant
DX: G43.009 Migraine without aura, not intractable, without status migrainosus (principal); M79.18 Myalgia, other site; R53.83 Other fatigue; Z13.0 Encounter for screening for diseases of the blood and blood-forming organs and certain disorders involving the immune mechanism; Z01.84 Encounter for antibody response examination
CPT/HCPCS: 36415; 82306; 82607; 82728; 82746; 83036; 83540; 83735; 84439; 84443; 85025; 85652; 86140; 86617; 86618; 86666